=== PATIENT | male | born 1935 | race Caucasian/White ===

== ENCOUNTER 2017-09-14 14:42 | Emergency (ER) | payer MEDICARE, OTHER ==
[~2017-09-14] VITALS: Ht 175.3 cm; Wt 77.0 kg
[2017-09-14 14:44] VITALS: BP 141/77; PULSE 65; RESP 16; TEMP 97.5; O2SAT 96
[2017-09-14 15:55] LABS: AUTOMATED NEUTROPHIL # 5.8 TH/MM3 (1.8-7.7); BASOPHIL % 0.2 % (0.0-2.0); EOSINOPHIL % 0.4 % (0.0-4.0); HEMATOCRIT 46.5 % (39.0-51.0); HEMOGLOBIN 16.2 GM/DL (13.0-17.0); LYMPH % 23.8 % (9.0-44.0); MEAN CELL VOLUME 89.4 FL (80.0-100.0); MEAN CORPUSCULAR HEMOGLOBIN 31.2 PG (27.0-34.0); MEAN CORPUSCULAR HGB CONC 34.9 % (32.0-36.0); MEAN PLATELET VOLUME 7.4 FL (7.0-11.0); MONO % 6.9 % (0.0-8.0); MONOCYTE # 0.6 TH/MM3 (0-0.9); NEUT % 68.7 % (16.0-70.0); PLATELET COUNT 251 TH/MM3 (150-450); RED BLOOD COUNT 5.21 MIL/MM3 (4.50-5.90); RED CELL DISTRIBUTION WIDTH 12.7 % (11.6-17.2); WHITE BLOOD COUNT 8.4 TH/MM3 (4.0-11.0)
--- NOTE | 2017-09-14 15:56 | PD ---
HPI Chief Complaint: Abdominal Pain Time Seen by Provider: 15:51 Travel History International Travel<30 days: No Contact w/Intl Traveler<30days: No Traveled to known affect area: No History of Present Illness HPI 81-year-old male presents the emergency department with ongoing and worsening abdominal pain over the past 5 days. Patient states the pain was more intermittent, and felt like a previous gastric ulcer he had. Patient has been trying [id number] antacids, Carafate, and other medications without improvement. Patient has had nausea but no vomiting or diarrhea. He denies fever or chills. Patient states the pain sometimes radiates up into his chest but is mainly in the anterior central abdomen. Patient has had his gallbladder removed in the past. He still has his appendix. He denies urinary symptoms. Patient denies being a heavy drinker. He denies flank pain. Patient's pain is currently 9 out of 10. He has visible guarding. He has no known drug allergies. [facility] Social History Alcohol Use: Yes Tobacco Use: No Substance Use: No Allergies-Medications (Allergen,Severity, Reaction): Coded Allergies: No Known Allergies (Unverified , 09/14/17) Reported Meds & Prescriptions Reported Meds & Active Scripts Active Tramadol (Tramadol HCl) 50 Mg Tab 50 Mg PO Q6H PRN Carafate (Sucralfate) 1 Gram Tab 1 Gm PO QID On empty stomach Pantoprazole (Pantoprazole Sodium) 40 Mg Tab 40 Mg PO BID Reported Fiber (Calcium Polycarbophil) 625 Mg Tab 625 Mg PO PRN Melatonin 5 Mg Tab 5 Mg PO HS Lorazepam 1 Mg Tab 1 Mg PO Q4H PRN Lexapro (Escitalopram Oxalate) 10 Mg Tab 10 Mg PO DAILY Review of Systems Except as stated in HPI: all other systems reviewed are Neg General / Constitutional: No: Fever, Chills Eyes: No: Visual changes HENT: No: Headaches Cardiovascular: No: Chest Pain or Discomfort Respiratory: No: Shortness of Breath Gastrointestinal: Positive: Nausea, Abdominal Pain, Loss of Appetite, No: Vomiting, Diarrhea, Hematemesis, Hematochezia, Constipation, Changes in Bowel Habits, Indigestion (See history of present illness), Dysphagia Genitourinary: No: Urgency, Frequency, Dysuria Musculoskeletal: No: Pain Skin: No Rash Neurologic: No: Weakness Psychiatric: No: Depression Endocrine: No: Polydipsia Hematologic/Lymphatic: No: Easy Bruising Physical Exam Narrative GENERAL: Patient appears in moderate distress SKIN: Warm and dry. Normal color. Normal turgor. No rash. HEAD: Atraumatic. Normocephalic. EYES: Pupils equal and round. No scleral icterus. No injection or drainage. ENT: No nasal bleeding or discharge. Mucous membranes pink and moist. Pharynx is clear. Airways patent NECK: Trachea midline. Supple and nontender CARDIOVASCULAR: Regular rate and rhythm. RESPIRATORY: No accessory muscle use. Clear to auscultation. Breath sounds equal bilaterally. GASTROINTESTINAL: Patient has mild to moderate guarding. Patient has nonspecific tenderness in the central to right lower quadrant, nondistended. No specific point tenderness or rebound is appreciated. Psoas sign does not appear to be positive. Hepatic and splenic margins not palpable. MUSCULOSKELETAL: Extremities without clubbing, cyanosis, or edema. No obvious deformities. NEUROLOGICAL: Awake and alert. No obvious cranial nerve deficits. Motor grossly within normal limits. Five out of 5 muscle strength in the arms and legs. Normal speech. PSYCHIATRIC: Appropriate mood and affect; insight and judgment normal. Data Data Last Documented VS Vital Signs Date Time Temp Pulse Resp B/P (MAP) Pulse Ox O2 Delivery O2 Flow Rate FiO2 09/14/17 16:55 18 98 Nasal Cannula 2.00 09/14/17 14:44 97.5 65 Orders Orders Complete Blood Count With Diff (09/14/17 15:26) Comprehensive Metabolic Panel (09/14/17 15:26) Urinalysis - C+S If Indicated (09/14/17 15:26) Lipase (09/14/17 15:26) Ct Abd/Pel W Iv Contrast(Rout) (09/14/17 15:57) Iv Access Insert/Monitor (09/14/17 15:57) Ecg Monitoring (09/14/17 15:57) Oximetry (09/14/17 15:57) NPO (09/14/17 15:57) Morphine Inj (Morphine Inj) (09/14/17 16:00) Ondansetron Inj (Zofran Inj) (09/14/17 16:00) Sodium Chlor 0.9% 1000 Ml Inj (Ns 1000 M (09/14/17 15:57) Sodium Chloride 0.9% Flush (Ns Flush) (09/14/17 16:00) Electrocardiogram (09/14/17 15:57) Famotidine Inj (Pepcid Inj) (09/14/17 16:00) Ckmb (Isoenzyme) Profile (09/14/17 16:00) Troponin I (09/14/17 16:00) Iohexol 350 Inj (Omnipaque 350 Inj) (09/14/17 17:22) Al-Mag Hy-Si 40-40-4 Mg/Ml Liq (Mag-Al P (09/14/17 17:30) Lidocaine 2% Viscous (Xylocaine 2% Visco (09/14/17 17:30) Pantoprazole (Protonix) (09/14/17 17:30) Lorazepam Inj (Ativan Inj) (09/14/17 17:45) Ed Discharge Order (09/14/17 18:15) Labs Laboratory Tests Test 09/14/17 15:30 White Blood Count 8.4 TH/MM3 Red Blood Count 5.21 MIL/MM3 Hemoglobin 16.2 GM/DL Hematocrit 46.5 % Mean Corpuscular Volume 89.4 FL Mean Corpuscular Hemoglobin 31.2 PG Mean Corpuscular Hemoglobin Concent 34.9 % Red Cell Distribution Width 12.7 % Platelet Count 251 TH/MM3 Mean Platelet Volume 7.4 FL Neutrophils (%) (Auto) 68.7 % Lymphocytes (%) (Auto) 23.8 % Monocytes (%) (Auto) 6.9 % Eosinophils (%) (Auto) 0.4 % Basophils (%) (Auto) 0.2 % Neutrophils # (Auto) 5.8 TH/MM3 Lymphocytes # (Auto) 2.0 TH/MM3 Monocytes # (Auto) 0.6 TH/MM3 Eosinophils # (Auto) 0.0 TH/MM3 Basophils # (Auto) 0.0 TH/MM3 CBC Comment DIFF FINAL Differential Comment Urine Color YELLOW Urine Turbidity CLEAR Urine pH 6.5 Urine Specific Central 1.026 Urine Protein TRACE mg/dL Urine Glucose (UA) NEG mg/dL Urine Ketones 10 mg/dL Urine Occult Blood NEG Urine Nitrite NEG Urine Bilirubin NEG Urine Urobilinogen LESS THAN 2.0 MG/DL Urine Leukocyte Esterase TRACE Urine WBC 2 /hpf Urine Mucus FEW /lpf Microscopic Urinalysis Comment CULT NOT INDICATED Blood Urea Nitrogen 21 MG/DL Creatinine 0.92 MG/DL Random Glucose 107 MG/DL Total Protein 7.4 GM/DL Albumin 4.5 GM/DL Calcium Level 9.2 MG/DL Alkaline Phosphatase 61 U/L Aspartate Amino Transf (AST/SGOT) 17 U/L Alanine Aminotransferase (ALT/SGPT) 26 U/L Total Bilirubin 1.8 MG/DL Sodium Level 136 MEQ/L Potassium Level 3.9 MEQ/L Chloride Level 105 MEQ/L Carbon Dioxide Level 23.8 MEQ/L Anion Gap 7 MEQ/L Estimat Glomerular Filtration Rate 79 ML/MIN Lipase 88 U/L [facility] Medical Decision Making Medical Screen Exam Complete: Yes Emergency Medical Condition: Yes Medical Record Reviewed: Yes Differential Diagnosis Abdominal pain. Pancreatitis. Diverticulitis. Appendicitis. Cardiac syndrome. Kidney stone. Renal colic. Biliary colic. Gastric ulcer. Narrative Course Patient is medically stable at time of exam. Labs ordered including CBC, CMP, urinalysis, lipase, and cardiac panel. Patient is given 2 mg morphine IV as well as 4 mg Zofran IV. Patient is given 20 mg famotidine IV as well as 1000 mL of normal saline bolus. CT of the abdomen is ordered with IV contrast. EKG is ordered as well. EKG shows sinus rhythm with occasional ectopic PVCs. CBC is unremarkable. Chemistries are unremarkable except for BUN of 21, GFR 79, glucose 107, total bilirubin was 1.8. Urinalysis shows 10 ketones otherwise no significant findings. Abdominal/pelvis CT shows: CONCLUSION: Negative for an acute process. I do not see etiology for the abdominal pain. Patient is given 40 mg pantoprazole p.o., as well as GI cocktail p.o. Patient is given Lorazepam 1 mg IV. Patient is felt to have gastritis. Patient will be treated empirically with pantoprazole 40 mg twice daily 2 weeks. Patient is to start Carafate 1 g 4 times daily as directed. Patient is given tramadol 50 mg every 6 hours as needed pain #20 Recommend close follow-up with his primary care physician or return to emergency department with worsening symptoms as needed. Diagnosis Primary Impression: Abdominal pain Qualified Codes: R10.13 - Epigastric pain Referrals: Physician Surgeon Primary Care Physician Patient Instructions: Diet for Stomach Ulcers and Gastritis (ED), General Instructions Additional Instructions: EKG shows sinus rhythm with occasional ectopic PVCs. CBC is unremarkable. Chemistries are unremarkable except for BUN of 21, GFR 79, glucose 107, total bilirubin was 1.8. Urinalysis shows 10 ketones otherwise no significant findings. Abdominal/pelvis CT shows: CONCLUSION: Negative for an acute process. I do not see etiology for the abdominal pain. Patient is given 40 mg pantoprazole p.o., as well as GI cocktail p.o. Patient is felt to have gastritis. Patient will be treated empirically with pantoprazole 40 mg twice daily 2 weeks. Patient is to start Carafate 1 g 4 times daily as directed. Patient is given tramadol 50 mg every 6 hours as needed pain #20 Recommend close follow-up with his primary care physician or return to emergency department with worsening symptoms as needed. Med/Other Pt SpecificInfo: Prescription(s) given Scripts Tramadol (Tramadol) 50 Mg Tab 50 MG PO Q6H Y for PAIN, #20 TAB 0 Refills Prov: Roger Hannah MD 09/14/17 Sucralfate (Carafate) 1 Gram Tab 1 GM PO QID for Ulcer Prevention, #120 TAB 0 Refills On empty stomach Prov: Roger Hannah MD 09/14/17 Pantoprazole (Pantoprazole) 40 Mg Tab 40 MG PO BID for Reflux, #30 TAB 0 Refills Prov: Roger Hannah MD 09/14/17 Disposition: 01 DISCHARGE HOME Condition: Stable Italo Hinojosa Sep 14, 2017 15:56
[2017-09-14] MEDS ORDERED: SODIUM CHLOR 0.9% 1000 ML INJ 1,000 ML IV SCH (15:57)
[2017-09-14] MEDS ORDERED: ONDANSETRON HCL 4 MG/2 ML VIAL IVP ONE (16:00)
[2017-09-14] MEDS ORDERED: FAMOTIDINE 20 MG/2 ML VIAL IV PUSH ONE (16:00)
[2017-09-14] MEDS ORDERED: MORPHINE SULFATE 4 MG/ML INJ IV PUSH ONE (16:00)
[2017-09-14] MEDS ORDERED: SODIUM CHLORIDE 0.9% FLUSH 10 ML FLUSH IV FLUSH PRN (16:00)
[2017-09-14 16:06] LABS: BILIRUBIN, URINE NEG (NEG); BLOOD, URINE NEG (NEG); GLUCOSE,URINE NEG (NEG); KETONE, URINE 10 mg/dL (NEG); MUCUS URINE FEW /lpf (OCC); NITRITE,URINE NEG (NEG); PH, URINE 6.5 (5.0-8.5); URINE COLOR YELLOW (YELLW/STRAW); URINE LEUKOCYTE ESTERASE TRACE (NEG)
[2017-09-14 16:08] LABS: ALBUMIN 4.5 GM/DL (3.4-5.0); ALT (GPT) 26 U/L (12-78); AST (GOT) 17 U/L (15-37); BICARBONATE 23.8 MEQ/L (21.0-32.0); BLOOD UREA NITROGEN 21 MG/DL (7-18); CALCIUM 9.2 MG/DL (8.5-10.1); CHLORIDE 105 MEQ/L (98-107); CREATININE 0.92 MG/DL (0.60-1.30); GLOMERULAR FILTRATION RATE 79 ML/MIN (>89); GLUCOSE,RANDOM 107 MG/DL (74-106); SODIUM (NA) 136 MEQ/L (136-145)
[2017-09-14 16:10] LABS: ALKALINE PHOSPHATASE 61 U/L (45-117); TOTAL BILIRUBIN ADULT 1.8 MG/DL (0.2-1.0); TOTAL PROTEIN 7.4 GM/DL (6.4-8.2)
[2017-09-14 16:55] VITALS: RESP 18; O2SAT 98
[2017-09-14] MEDS ORDERED: MELA5 PO (17:00)
[2017-09-14] MEDS ORDERED: LEXA10TA PO (17:00)
[2017-09-14] MEDS ORDERED: FIBE625T10 PO (17:00)
[2017-09-14] MEDS ORDERED: LORA1TAB12 PO (17:00)
[2017-09-14] MEDS ORDERED: IOHEXOL 350 MG/ML 10 ML VIAL (for RAD DIAG) IVCONTRAST ONE (17:22)
--- NOTE | 2017-09-14 17:26 | RADRPT ---
EXAM DATE/TIME: 09/14/2017 17:14 [place] COMPARISON: No previous studies available for comparison. INDICATIONS : Abdominal pain. IV CONTRAST: 100 cc Omnipaque 350 (iohexol) IV ORAL CONTRAST: No oral contrast ingested. RADIATION DOSE: 23.23 CTDIvol (mGy) MEDICAL HISTORY : None SURGICAL HISTORY : None. ENCOUNTER: Initial ACUITY: 4 - 6 days PAIN SCALE: 7/10 LOCATION: middle lower abdomen TECHNIQUE: Volumetric scanning of the abdomen and pelvis was performed. Using automated exposure control and ad justment of the mA and/or kV according to patient size, radiation dose was kept as low as reasonably achievable to obtain optimal diagnostic quality images. DICOM format image data is available electro nically for review and comparison. FINDINGS: LOWER LUNGS: The visualized lower lungs are clear. LIVER: Homogeneous density without lesion. There is no dilation of the biliary tree. No calcified gallston es. SPLEEN: Normal size without lesion. PANCREAS: Within normal limits. KIDNEYS: Normal in size and shape. There is no mass, stone or hydronephrosis. ADRENAL GLANDS: Within normal limits. VASCULAR: There is no aortic aneurysm. BOWEL/MESENTERY: The stomach, small bowel, and colon demonstrate no acute abnormality. There is no free intraperitone al air or fluid. ABDOMINAL WALL: Within normal limits. RETROPERITONEUM: There is no lymphadenopathy. BLADDER: No wall thickening or mass. REPRODUCTIVE: Within normal limits. INGUINAL: There is no lymphadenopathy or hernia. MUSCULOSKELETAL: Within normal limits for patient age. CONCLUSION: Negative for an acute process. I do not see etiology for the abdominal pain. Jerome Stacy MD FACR on September 14, 2017 at 17:22 Board Certified Radiologist. This report was verified electronically.
[2017-09-14] MEDS ORDERED: LIDOCAINE VISCOUS 2% SOLN 15 ML UDC PO ONE (17:30)
[2017-09-14] MEDS ORDERED: PANTOPRAZOLE SOD 40 MG DELAYED RELEASE TAB PO ONE (17:30)
[2017-09-14] MEDS ORDERED: ALUMINUM/MAGNESIUM/SIMETH 30 ML CUP PO ONE (17:30)
[2017-09-14] MEDS ORDERED: TRAM50TA PO (17:35)
[2017-09-14] MEDS ORDERED: PANT40TA3 PO (17:35)
[2017-09-14] MEDS ORDERED: CARA1TAB6 PO (17:35)
[2017-09-14] MEDS ORDERED: LORazepam 2 MG/ML VIAL IV PUSH ONE (17:45)
[2017-09-15 00:15] LABS: TROPONIN I LESS THAN 0.02 NG/ML (0.02-0.05)
--- NOTE | 2017-09-15 23:57 | EKG ---
Date Performed: 09/14/2017 Time Performed: 16:48:29 PTAGE: 81 years EKG: Sinus rhythm WITH OCCASIONAL ECTOPIC PREMATURE COMPLEXES BORDERLINE ECG NO PREVIOUS TRACING DOCTOR: Billy Alarcon Interpretating Date/Time 09/15/2017 23:56:51
== END 2017-09-14 19:03 | disposition home or self-care (01) ==
LOC: NEPC 14:42
DX: R10.13 Epigastric pain (principal); I49.3 Ventricular premature depolarization; R11.0 Nausea; Z79.899 Other long term (current) drug therapy
CPT/HCPCS: 74177; 80053; 81001; 82550; 83690; 84484; 85025; 93005; 96374; 96375; 99285; J2060; J2270; J2405; J7030; Q9967

== ENCOUNTER 2017-09-19 15:49 | Observation (INO) | payer MEDICARE, OTHER ==
[~2017-09-19] VITALS: Ht 175.3 cm; Wt 80.0 kg
[~2017-09-19 15:49] MED LIST: CARA1TAB6 PO; FIBE625T10 PO; LEXA10TA PO; LORA1TAB12 PO; MELA5 PO; PANT40TA3 PO; TRAM50TA PO
[2017-09-19] MEDS ORDERED: IOHEXOL 350 MG/ML 10 ML VIAL (for RAD DIAG) IVCONTRAST ONE (15:50)
[2017-09-19 15:51] VITALS: BP 144/79; PULSE 69; RESP 20; TEMP 97.6; O2SAT 96
[2017-09-19] MEDS ORDERED: MORPHINE SULFATE 2 MG/ML INJ IV PUSH ONE (16:30)
[2017-09-19] MEDS ORDERED: ONDANSETRON HCL 4 MG/2 ML VIAL IV PUSH ONE (16:30)
[2017-09-19] MEDS ORDERED: SODIUM CHLOR 0.9% 1000 ML INJ 1,000 ML IV ONE (16:30)
[2017-09-19] MEDS: SODIUM CHLORIDE 0.9% FLUSH 10 ML FLUSH IV FLUSH PRN ×2 (16:54→20:05)
[2017-09-19 17:03] VITALS: O2SAT 97
[2017-09-19 17:11] VITALS: BP 127/63; PULSE 55; RESP 18; O2SAT 98
--- NOTE | 2017-09-19 17:11 | PD ---
HPI Chief Complaint: Abdominal Pain Time Seen by Provider: 16:01 Travel History International Travel<30 days: No Contact w/Intl Traveler<30days: No Traveled to known affect area: No History of Present Illness HPI 81-year-old male presents to the ED for evaluation of "all over" abdominal pain. Pain is constant, aching/burning, rated 10/10, no alleviating or exacerbating factors reported. Sudden onset approximately 10 days ago. He endorses loss of appetite secondary to fear of pain. He endorses nausea but denies vomiting, fever, chills, melena, hematochezia, diarrhea, changes in bowel habits. He was seen in the ED 09/14/[address] scan that was unremarkable. He was provided a GI cocktail, Carafate and pantoprazole. States the GI cocktail did improve his symptoms but his at-home medications have not been helping. Today he saw Dr. Bettencourt who recommended the patient come to the emergency room for CTA and admission. PFSH Past Medical History Anxiety: Yes Depression: Yes Diminished Hearing: No Ulcer: Yes Past Surgical History Cholecystectomy: Yes Other Surgery: Yes (HERNIA REPAIR X 2) Social History Alcohol Use: Yes (OCCASSIONAL) Tobacco Use: No Substance Use: No Allergies-Medications (Allergen,Severity, Reaction): Coded Allergies: No Known Allergies (Unverified , 09/19/17) Reported Meds & Prescriptions Reported Meds & Active Scripts Active Tramadol (Tramadol HCl) 50 Mg Tab 50 Mg PO Q6H PRN Carafate (Sucralfate) 1 Gram Tab 1 Gm PO QID On empty stomach Pantoprazole (Pantoprazole Sodium) 40 Mg Tab 40 Mg PO BID Reported Fiber (Calcium Polycarbophil) 625 Mg Tab 625 Mg PO PRN Melatonin 5 Mg Tab 5 Mg PO HS Lorazepam 1 Mg Tab 1 Mg PO Q4H PRN Lexapro (Escitalopram Oxalate) 10 Mg Tab 10 Mg PO DAILY Review of Systems Except as stated in HPI: all other systems reviewed are Neg Physical Exam Narrative GENERAL: Well-nourished, well-developed nontoxic appearing white male in no acute distress. SKIN: Focused skin assessment warm/dry. HEAD: Normocephalic. EYES: No scleral icterus. No injection or drainage. NECK: Supple, trachea midline. No JVD or lymphadenopathy. CARDIOVASCULAR: Regular rate and rhythm without murmurs, gallops, or rubs. RESPIRATORY: Breath sounds clear and equal bilaterally. No accessory muscle use. GASTROINTESTINAL: Abdomen soft, nondistended, diffusely TTP. Hypoactive bowel sounds. MUSCULOSKELETAL: No cyanosis, or edema. BACK: Nontender without obvious deformity. No CVA tenderness. Data Data Last Documented VS Vital Signs Date Time Temp Pulse Resp B/P (MAP) Pulse Ox O2 Delivery O2 Flow Rate FiO2 09/19/17 18:37 62 18 155/72 (99) 99 Nasal Cannula 2.00 09/19/17 15:51 97.6 Orders Orders Complete Blood Count With Diff (09/19/17 16:03) Comprehensive Metabolic Panel (09/19/17 16:03) Lipase (09/19/17 16:03) Iv Access Insert/Monitor (09/19/17 16:03) Ecg Monitoring (09/19/17 16:03) Oximetry (09/19/17 16:03) Sodium Chloride 0.9% Flush (Ns Flush) (09/19/17 16:15) Cta Abd/Pel W Iv Contrast W 3d (09/19/17 ) Lactic Acid (09/19/17 16:29) Ondansetron Inj (Zofran Inj) (09/19/17 16:30) Morphine Inj (Morphine Inj) (09/19/17 16:30) Sodium Chlor 0.9% 1000 Ml Inj (Ns 1000 M (09/19/17 16:30) Iohexol 350 Inj (Omnipaque 350 Inj) (09/19/17 15:50) Acetamin-Hydrocod 325-7.5 Mg ([place] 7.5 (09/19/17 18:30) Lactic Acid (09/19/17 18:41) Al-Mag Hy-Si 40-40-4 Mg/Ml Liq (Mag-Al P (09/19/17 19:00) Lidocaine 2% Viscous (Xylocaine 2% Visco (09/19/17 19:00) Consult Psychiatry (09/19/17 ) Consult Gastroenterology (09/19/17 ) Lorazepam Inj (Ativan Inj) (09/19/17 19:45) Place In Observation (09/19/17 ) Vital Signs (Adult) Q4H (09/19/17 20:18) Activity Oob With Assistance (09/19/17 20:18) Farm Laborer / Telemetry .CONTINUOUS (09/19/17 20:18) Diet Npo (09/20/17 Breakfast) Sodium Chloride 0.9% Flush (Ns Flush) (09/19/17 20:30) Sodium Chloride 0.9% Flush (Ns Flush) (09/19/17 21:00) Ondansetron Inj (Zofran Inj) (09/19/17 20:30) Pt Request For Service (09/19/17 20:18) Case Management Consult (09/19/17 20:18) Naloxone Inj (Narcan Inj) (09/19/17 20:30) Admit Order (Ed Use Only) (09/19/17 20:18) Labs Laboratory Tests Test 09/19/17 16:50 09/19/17 19:05 White Blood Count 9.2 TH/MM3 Red Blood Count 5.00 MIL/MM3 Hemoglobin 15.8 GM/DL Hematocrit 45.1 % Mean Corpuscular Volume 90.1 FL Mean Corpuscular Hemoglobin 31.6 PG Mean Corpuscular Hemoglobin Concent 35.1 % Red Cell Distribution Width 12.7 % Platelet Count 216 TH/MM3 Mean Platelet Volume 7.4 FL Neutrophils (%) (Auto) 70.0 % Lymphocytes (%) (Auto) 21.6 % Monocytes (%) (Auto) 7.7 % Eosinophils (%) (Auto) 0.6 % Basophils (%) (Auto) 0.1 % Neutrophils # (Auto) 6.4 TH/MM3 Lymphocytes # (Auto) 2.0 TH/MM3 Monocytes # (Auto) 0.7 TH/MM3 Eosinophils # (Auto) 0.1 TH/MM3 Basophils # (Auto) 0.0 TH/MM3 CBC Comment DIFF FINAL Differential Comment Blood Urea Nitrogen 14 MG/DL Creatinine 1.09 MG/DL Random Glucose 96 MG/DL Total Protein 7.4 GM/DL Albumin 4.3 GM/DL Calcium Level 9.5 MG/DL Alkaline Phosphatase 63 U/L Aspartate Amino Transf (AST/SGOT) 24 U/L Alanine Aminotransferase (ALT/SGPT) 28 U/L Total Bilirubin 2.0 MG/DL Sodium Level 136 MEQ/L Potassium Level 4.0 MEQ/L Chloride Level 103 MEQ/L Carbon Dioxide Level 24.7 MEQ/L Anion Gap 8 MEQ/L Estimat Glomerular Filtration Rate 65 ML/MIN Lactic Acid Level 2.4 mmol/L 0.8 mmol/L Lipase 98 U/L MDM Medical Decision Making Medical Screen Exam Complete: Yes Emergency Medical Condition: Yes Differential Diagnosis Gastritis versus mesenteric ischemia versus PUD versus GERD versus other Narrative Course 81-year-old male presents to the ED for evaluation of "all over" abdominal pain. Pain is constant, aching/burning, rated 10/10, sudden onset approximately 10 days ago. He endorses loss of appetite secondary to fear of pain. He endorses nausea. Denies vomiting, fever, chills, melena, hematochezia , diarrhea, changes in bowel habits. He was seen in the ED 09/14/[address] scan that was unremarkable. Today he saw Dr. Bettencourt who recommended the patient come to the emergency room for CTA and admission. Patient afebrile on presentation. Physical exam reveals a nontoxic-appearing white male in no acute distress. There is no focal tenderness in the abdomen but he is mildly diffusely tender. No distention, no guarding. IV was established. Patient was administered 4 mg morphine, 4 mg Zofran, 1 L normal saline. CBC, CMP are unremarkable. Lipase 98. Lactic acid 2.4. CTA abdomen and pelvis: Tiny pericardial effusion and hepatic cysts otherwise unremarkable. On recheck the patient is complaining of continued pain. The nurse is concerned for decreased respiratory drive. Patient was administered GI cocktail and 7.5 mg [place]amo by mouth. I discussed the results of the workup with the patient and his . They are agreeable to admission pending Dr. Bettencourt' consult. I spoke with Dr. Camarena who is familiar with this patient. We discussed the patient's negative workup as well as his impression. Apparently there is some potential for psychiatric origin of this patient's pain. However , Dr. Camarena is willing to consult on the patient in the morning. I discussed this with the patient's family members at bedside. The patient's daughter-in- law is managing his care. She endorses several stressors including illness of the patient's . He does see a psychiatrist and recently had his medications adjusted. She states that he does seem in less pain when he takes the Ativan that is prescribed. Upon discussing discharge with the patient he became very anxious, began pacing around the room, complaining of worsening pain. I do suspect that there is a psychiatric component to this. Patient was administered 1 mg Ativan IV. We'll admit for observation with consult to gastroenterology and psychiatry. I spoke with Dr. Jean who agrees to accept the patient for observation. Please see medicine, psych and GI notes for disposition. Radha Guerrero Sep 19, 2017 17:11
[2017-09-19 17:16] LABS: AUTOMATED NEUTROPHIL # 6.4 TH/MM3 (1.8-7.7); BASOPHIL % 0.1 % (0.0-2.0); EOSINOPHIL # 0.1 TH/MM3 (0-0.4); EOSINOPHIL % 0.6 % (0.0-4.0); HEMATOCRIT 45.1 % (39.0-51.0); HEMOGLOBIN 15.8 GM/DL (13.0-17.0); LYMPH % 21.6 % (9.0-44.0); MEAN CELL VOLUME 90.1 FL (80.0-100.0); MEAN CORPUSCULAR HEMOGLOBIN 31.6 PG (27.0-34.0); MEAN CORPUSCULAR HGB CONC 35.1 % (32.0-36.0); MEAN PLATELET VOLUME 7.4 FL (7.0-11.0); MONO % 7.7 % (0.0-8.0); MONOCYTE # 0.7 TH/MM3 (0-0.9); PLATELET COUNT 216 TH/MM3 (150-450); RED CELL DISTRIBUTION WIDTH 12.7 % (11.6-17.2); WHITE BLOOD COUNT 9.2 TH/MM3 (4.0-11.0)
[2017-09-19 17:38] LABS: ALBUMIN 4.3 GM/DL (3.4-5.0); ALT (GPT) 28 U/L (12-78); AST (GOT) 24 U/L (15-37); BICARBONATE 24.7 MEQ/L (21.0-32.0); BLOOD UREA NITROGEN 14 MG/DL (7-18); CALCIUM 9.5 MG/DL (8.5-10.1); CHLORIDE 103 MEQ/L (98-107); CREATININE 1.09 MG/DL (0.60-1.30); GLOMERULAR FILTRATION RATE 65 ML/MIN (>89); GLUCOSE,RANDOM 96 MG/DL (74-106); SODIUM (NA) 136 MEQ/L (136-145)
[2017-09-19 17:40] LABS: ALKALINE PHOSPHATASE 63 U/L (45-117); TOTAL PROTEIN 7.4 GM/DL (6.4-8.2)
[2017-09-19] MEDS ORDERED: ACETAMINOPHEN/HYDROcodone 325 MG/7.5 MG TAB PO ONE (18:30)
[2017-09-19 18:37] VITALS: BP 155/72; PULSE 62; RESP 18; O2SAT 99
--- NOTE | 2017-09-19 18:59 | PD ---
Physical Exam Date Seen by Provider: Sep 19, 2017 Time Seen by Provider: 18:00 Narrative I, Dr. Hernandez, have reviewed the advance practice practitioner's documentation and am in agreement, met with the patient face to face, made the diagnosis, and the medical decision making was done by me. *My assessment and Findings: Patient seen and evaluated with PA, please see PA note for further details. 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 On evaluation, he has diffuse abdominal tenderness. There is no signs of distention, no guarding or rebound. Laboratory Tests Test 09/19/17 16:50 Total Bilirubin 2.0 MG/DL (0.2-1.0) Estimat Glomerular Filtration Rate 65 ML/MIN (>89) Lactic Acid Level 2.4 mmol/L (0.4-2.0) Patient was given pain medication the nausea medication, CTA order for the patient, planning to admit patient for further treatment. Data Data Last Documented VS Vital Signs Date Time Temp Pulse Resp B/P (MAP) Pulse Ox O2 Delivery O2 Flow Rate FiO2 09/19/17 18:37 62 18 155/72 (99) 99 Nasal Cannula 2.00 09/19/17 15:51 97.6 Orders Orders Complete Blood Count With Diff (09/19/17 16:03) Comprehensive Metabolic Panel (09/19/17 16:03) Lipase (09/19/17 16:03) Iv Access Insert/Monitor (09/19/17 16:03) Ecg Monitoring (09/19/17 16:03) Oximetry (09/19/17 16:03) Sodium Chloride 0.9% Flush (Ns Flush) (09/19/17 16:15) Cta Abd/Pel W Iv Contrast W 3d (09/19/17 ) Lactic Acid (09/19/17 16:29) Ondansetron Inj (Zofran Inj) (09/19/17 16:30) Morphine Inj (Morphine Inj) (09/19/17 16:30) Sodium Chlor 0.9% 1000 Ml Inj (Ns 1000 M (09/19/17 16:30) Iohexol 350 Inj (Omnipaque 350 Inj) (09/19/17 15:50) Acetamin-Hydrocod 325-7.5 Mg ([place] 7.5 (09/19/17 18:30) Lactic Acid (09/19/17 18:41) Al-Mag Hy-Si 40-40-4 Mg/Ml Liq (Mag-Al P (09/19/17 19:00) Lidocaine 2% Viscous (Xylocaine 2% Visco (09/19/17 19:00) Labs Laboratory Tests Test 09/19/17 16:50 White Blood Count 9.2 TH/MM3 Red Blood Count 5.00 MIL/MM3 Hemoglobin 15.8 GM/DL Hematocrit 45.1 % Mean Corpuscular Volume 90.1 FL Mean Corpuscular Hemoglobin 31.6 PG Mean Corpuscular Hemoglobin Concent 35.1 % Red Cell Distribution Width 12.7 % Platelet Count 216 TH/MM3 Mean Platelet Volume 7.4 FL Neutrophils (%) (Auto) 70.0 % Lymphocytes (%) (Auto) 21.6 % Monocytes (%) (Auto) 7.7 % Eosinophils (%) (Auto) 0.6 % Basophils (%) (Auto) 0.1 % Neutrophils # (Auto) 6.4 TH/MM3 Lymphocytes # (Auto) 2.0 TH/MM3 Monocytes # (Auto) 0.7 TH/MM3 Eosinophils # (Auto) 0.1 TH/MM3 Basophils # (Auto) 0.0 TH/MM3 CBC Comment DIFF FINAL Differential Comment Blood Urea Nitrogen 14 MG/DL Creatinine 1.09 MG/DL Random Glucose 96 MG/DL Total Protein 7.4 GM/DL Albumin 4.3 GM/DL Calcium Level 9.5 MG/DL Alkaline Phosphatase 63 U/L Aspartate Amino Transf (AST/SGOT) 24 U/L Alanine Aminotransferase (ALT/SGPT) 28 U/L Total Bilirubin 2.0 MG/DL Sodium Level 136 MEQ/L Potassium Level 4.0 MEQ/L Chloride Level 103 MEQ/L Carbon Dioxide Level 24.7 MEQ/L Anion Gap 8 MEQ/L Estimat Glomerular Filtration Rate 65 ML/MIN Lactic Acid Level 2.4 mmol/L Lipase 98 U/L [facility] Medical Record Reviewed: Yes Supervised Visit with LINO: Yes Diagnosis Primary Impression: Abdominal pain Admitting Information Admitting Physician Requests: Admit Stacey Hernandez MD Sep 19, 2017 18:59
[2017-09-19] MEDS ORDERED: ALUMINUM/MAGNESIUM/SIMETH 30 ML CUP PO ONE (19:00)
[2017-09-19] MEDS ORDERED: LIDOCAINE VISCOUS 2% SOLN 15 ML UDC PO ONE (19:00)
--- NOTE | 2017-09-19 19:01 | RADRPT ---
EXAM DATE/TIME: 09/19/2017 17:57 [place] COMPARISON: CT ABDOMEN & PELVIS W CONTRAST, September 14, 2017, 17:14. INDICATIONS : Continued abdominal pain. Evaluate for thrombosis. IV CONTRAST: 99 cc Omnipaque 350 (iohexol) IV ORAL CONTRAST: No oral contrast ingested. RADIATION DOSE: 15.68 CTDIvol (mGy) MEDICAL HISTORY : None SURGICAL HISTORY : Cholecystectomy. Hernia repair ENCOUNTER: Initial ACUITY: 2 weeks PAIN SCALE: 5/10 LOCATION: Bilateral abdomen TECHNIQUE: Volumetric scanning was performed using a multi-row detector CT scanner. The data was post processed with a variety of visualization algorithms including full volume maximum intensity projection, multi -planar sliding thin slab reformation, curved planar reformation, and surface rendering techniques. Using automated exposure control and adjustment of the mA and/or kV according to patient size, radiat ion dose was kept as low as reasonably achievable to obtain optimal diagnostic quality images. DICOM format image data is available electronically for review and comparison. FINDINGS: Again noted are simple cysts in the liver. There is a tiny pericardial effusion. There is eviden ce for prior cholecystectomy. The prostate gland measures 5.0 x 5.4 cm in AP and transverse diameters . There is mild ascites is involving the aorta and visceral arteries without any significant stenosis dissection or aneurysm. The appearance has not changed since the study from 5 days ago. The celiac, SMA, bilateral renal arteries appear patent. CONCLUSION: Tiny pericardial effusion and hepatic cysts, otherwise unremarkable. Leda Monroy MD on September 19, 2017 at 18:53 Board Certified Radiologist. This report was verified electronically.
[2017-09-19] MEDS ORDERED: LORazepam 2 MG/ML VIAL IV PUSH ONE (19:45)
[2017-09-19] MEDS ORDERED: SODIUM CHLORIDE 0.9% FLUSH 10 ML FLUSH IV FLUSH PRN (20:30)
[2017-09-19] MEDS ORDERED: NALOXONE HCL 0.4 MG/ML AMP IV PUSH PRN (20:30)
[2017-09-19] MEDS ORDERED: ONDANSETRON HCL 4 MG/2 ML VIAL IVP PRN (20:30)
[2017-09-19 20:52] VITALS: BP 147/67; PULSE 67; RESP 16; O2SAT 98
[2017-09-19] MEDS: SODIUM CHLORIDE 0.9% FLUSH 10 ML FLUSH IV FLUSH SCH (20:57)
[2017-09-19 21:54] VITALS: BP 127/69; PULSE 51; RESP 18; TEMP 98.1; O2SAT 95
--- NOTE | 2017-09-19 22:19 | HHI.HP ---
HPI Service [facility] Primary Care Physician Viry Tang MD Admission Diagnosis abdominal pain, anxiety Diagnoses: Chief Complaint: abdominal pain, anxiety Travel History International Travel<30 Days: No Contact w/Intl Traveler <30 Da: No Traveled to Known Affected Are: No History of Present Illness 81 y/o male with a history of gerd, anxiety and depression presented to the ED with complaints of abdominal pain for the last 12 days. Patient states his pain on arrival was a 10/10, intermittent, sharp all over with nausea, worse with palpation. He states now his pain has resolved, 0/10, since the pain medication and gi cocktail was given. He states he took mylanta and gas ex at home with no relief and was seen by his GI Dr. Bettencourt who sent him to the ED for a CT scan and admission. He states his last bowel movement was this morning and denies any change in consistency or color. He denies any chest pain, sob, dysuria, fever or chills. Per ER physician family and GI physician thinks this may be physiatric in nature. Per family patient use to abuse pain medication and they think this may be a cause for concern. Review of Systems Except as stated in HPI: all other systems reviewed are Neg Past Family Social History Past Medical History Anxiety depression Gerd Past Surgical History Cholecystectomy Hernia repair Reported Medications Reported Meds & Active Scripts Active Tramadol (Tramadol HCl) 50 Mg Tab 50 Mg PO Q6H PRN Carafate (Sucralfate) 1 Gram Tab 1 Gm PO QID On empty stomach Pantoprazole (Pantoprazole Sodium) 40 Mg Tab 40 Mg PO BID Reported Fiber (Calcium Polycarbophil) 625 Mg Tab 625 Mg PO PRN Melatonin 5 Mg Tab 5 Mg PO HS Lorazepam 1 Mg Tab 1 Mg PO Q4H PRN Lexapro (Escitalopram Oxalate) 10 Mg Tab 10 Mg PO DAILY Allergies: Coded Allergies: No Known Allergies (Unverified , 09/19/17) Active Ordered Medications Current Medications Medications (Trade) Dose Ordered Sig/Pato Route Start Time Stop Time Status Last Admin (NS Flush) 2 ml UNSCH PRN IV FLUSH 09/19/17 16:15 09/19/17 20:05 (NS Flush) 2 ml UNSCH PRN IV FLUSH 09/19/17 20:30 (NS Flush) 2 ml BID IV FLUSH 09/19/17 21:00 09/19/17 20:57 (Zofran Inj) 4 mg Q6H PRN IVP 09/19/17 20:30 (Narcan Inj) 0.4 mg UNSCH PRN IV PUSH 09/19/17 20:30 Family History Patient denies any family history. Social History Tobacco use: Denies Alcohol use: denies Illicit drug use: Denies Patient lives with his , for 57 years Physical Exam Vital Signs Vital Signs Date Time Temp Pulse Resp B/P (MAP) Pulse Ox O2 Delivery O2 Flow Rate FiO2 09/19/17 21:54 98.1 51 18 127/69 (88) 95 09/19/17 20:52 67 16 147/67 (93) 98 Nasal Cannula 2.00 09/19/17 18:37 62 18 155/72 (99) 99 Nasal Cannula 2.00 09/19/17 17:12 18 09/19/17 17:11 55 18 127/63 (84) 98 Nasal Cannula 2.00 09/19/17 17:03 97 Room Air 09/19/17 15:51 97.6 69 20 144/79 (100) 96 Physical Exam GENERAL: This is a well-nourished, well-developed patient, who is anxious. SKIN: No rashes, ecchymoses or lesions. Cool and dry. HEAD: Atraumatic. Normocephalic. EYES: Pupils equal round and reactive. Extraocular motions intact. ENT: Nose without bleeding, purulent drainage or septal hematoma. Airway patent. NECK: Trachea midline. No JVD or lymphadenopathy. CARDIOVASCULAR: Regular rate and rhythm without murmurs, gallops, or rubs. RESPIRATORY: Clear to auscultation. Breath sounds equal bilaterally. No wheezes , rales, or rhonchi. GASTROINTESTINAL: Abdomen soft, non-tender, nondistended. MUSCULOSKELETAL: Extremities without clubbing, cyanosis, or edema. No calf tenderness NEUROLOGICAL: Awake and alert. Motor and sensory grossly within normal limits. Normal speech. Laboratory Laboratory Tests Test 09/19/17 16:50 09/19/17 19:05 White Blood Count 9.2 Red Blood Count 5.00 Hemoglobin 15.8 Hematocrit 45.1 Mean Corpuscular Volume 90.1 Mean Corpuscular Hemoglobin 31.6 Mean Corpuscular Hemoglobin Concent 35.1 Red Cell Distribution Width 12.7 Platelet Count 216 Mean Platelet Volume 7.4 Neutrophils (%) (Auto) 70.0 Lymphocytes (%) (Auto) 21.6 Monocytes (%) (Auto) 7.7 Eosinophils (%) (Auto) 0.6 Basophils (%) (Auto) 0.1 Neutrophils # (Auto) 6.4 Lymphocytes # (Auto) 2.0 Monocytes # (Auto) 0.7 Eosinophils # (Auto) 0.1 Basophils # (Auto) 0.0 CBC Comment DIFF FINAL Differential Comment Blood Urea Nitrogen 14 Creatinine 1.09 Random Glucose 96 Total Protein 7.4 Albumin 4.3 Calcium Level 9.5 Alkaline Phosphatase 63 Aspartate Amino Transf (AST/SGOT) 24 Alanine Aminotransferase (ALT/SGPT) 28 Total Bilirubin 2.0 Sodium Level 136 Potassium Level 4.0 Chloride Level 103 Carbon Dioxide Level 24.7 Anion Gap 8 Estimat Glomerular Filtration Rate 65 Lactic Acid Level 2.4 0.8 Lipase 98 Result Diagram: 09/19/17 1650 09/19/17 1650 Imaging Last Impressions Abdomen/Pelvis CT 09/19/17 0000 Signed Impressions: Service Date/Time: Tuesday, September 19, 2017 17:57 - CONCLUSION: Tiny pericardial effusion and hepatic cysts, otherwise unremarkable. MD Keith Brandt VTE Risk Assessment Caprini VTE Risk Assessment: No/Low Risk (score <= 1) Caprini Risk Assessment Model Point Value = 1 Point Value = 2 Point Value = 3 Point Value = 5 Age 41-60 Minor surgery BMI > 25 kg/m2 Swollen legs Varicose veins or History of unexplained or recurrent spontaneous Oral contraceptives or hormone replacement Sepsis (< 1 month) Serious lung disease, including pneumonia (< 1 month) Abnormal pulmonary function Acute myocardial infarction Congestive heart failure (< 1 month) History of inflammatory bowel disease Medical patient at bed rest Age 61-74 Arthroscopic surgery Major open surgery (> 45 min) Laparoscopic surgery (> 45 min) Malignancy Confined to bed (> 72 hours) Immobilizing plaster cast Central venous access Age >= 75 History of VTE Family history of VTE Factor V Leiden Prothrombin [id number] Lupus anticoagulant Anticardiolipin antibodies Elevated serum homocysteine Heparin-induced thrombocytopenia Other congenital or acquired thrombophilia Stroke (< 1 month) Elective arthroplasty Hip, pelvis, or leg fracture Acute spinal cord injury (< 1 month) Prophylaxis Regimen Total Risk Factor Score Risk Level Prophylaxis Regimen 0-1 Low Early ambulation 2 Moderate Order ONE of the following: *Sequential Compression Device (SCD) *Heparin 5000 units SQ BID 3-4 Higher Order ONE of the following medications: *Heparin 5000 units SQ TID *Enoxaparin/Lovenox 40 mg SQ daily (WT < 150 kg, CrCl > 30 mL/min) *Enoxaparin/Lovenox 30 mg SQ daily (WT < 150 kg, CrCl > 10-29 mL/min) *Enoxaparin/Lovenox 30 mg SQ BID (WT < 150 kg, CrCl > 30 mL/min) AND/OR *Sequential Compression Device (SCD) 5 or more Highest Order ONE of the following medications: *Heparin 5000 units SQ TID (Preferred with Epidurals) *Enoxaparin/Lovenox 40 mg SQ daily (WT < 150 kg, CrCl > 30 mL/min) *Enoxaparin/Lovenox 30 mg SQ daily (WT < 150 kg, CrCl > 10-29 mL/min) *Enoxaparin/Lovenox 30 mg SQ BID (WT < 150 kg, CrCl > 30 mL/min) AND *Sequential Compression Device (SCD) Assessment and Plan Problem List: (1) Abdominal pain ICD Code: R10.9 - Unspecified abdominal pain Status: Acute (2) Anxiety ICD Code: F41.9 - Anxiety disorder, unspecified Assessment and Plan 81 y/o male with a history of anxiety and depression presented to the ED with complaints of abdominal pain for the last 12 days. Abdominal pain, acute, unknown etiology Abdomen CT shows tiny pericardial effusion and hepatic cysts. -Consult GI, endoscopy planned for am -NPO -Pain management with IV morphine -Resume home Carafate and Protonix Anxiety, family concerned that patient has increased anxiety and is pain seeking -Consult psych for recommendations -Resume home medications DVT prophylaxis: SCDs Discussed Condition With Patient, Dr. Jean and RN Carmen Marquez Sep 19, 2017 22:19
[2017-09-20] VITALS (9 sets, daily range): BP systolic 118–146; BP diastolic 61–73; PULSE 45–74; RESP 18–21; TEMP 97.8–98.5; O2SAT 94–98
[2017-09-20] MEDS ORDERED: LACTATED RINGER'S 1000 ML IV PRN (02:15)
[2017-09-20] MEDS ORDERED: CHLORHEXIDINE GLUCONATE 2 % 1 PACK (2 CLOTHS) TOPICAL PRN (02:15)
[2017-09-20] MEDS ORDERED: SODIUM CHLORID 0.9% 500 ML IV PRN (02:15)
[2017-09-20] MEDS ORDERED: INSULIN HUMAN REGULAR 1,000 UNITS/10 ML VIAL SQ PRN (02:15)
[2017-09-20] MEDS ORDERED: METOPROLOL TARTRATE 25 MG TAB PO PRN (02:15)
[2017-09-20] MEDS ORDERED: POVIDONE IODINE 5% (ANTISEPSIS KIT) 4 APPLICATIONS EACH NARE PRN (02:15)
[2017-09-20] MEDS: MORPHINE SULFATE 2 MG/ML INJ IV PUSH PRN (07:52)
--- NOTE | 2017-09-20 08:51 | MB ---
cc: ANTONETTE BETTENCOURT M.D., TWETHIDA MD AGNONE, LOUIS M. MD LEUTERIO, RIZALINA M.D. DATE OF CONSULTATION 09/20/[address] Thalia Jean REASON FOR CONSULTATION Epigastric pain. HISTORY This is a 81-year-old male who presented to our office yesterday and was seen by Dr. Bettencourt for a 10-day history of epigastric pain. Please refer to Dr. Bettencourt' office consult for details. The patient states he has a remote history of gastric ulcer disease. He is somewhat of a poor historian and appears to suffer with anxiety and depression. He reportedly had a negative CT scan of the abdomen and pelvis last week when he went to a local emergency room. He denies any dysphagia or weight loss. The pain has not responded to Carafate or magnesium-based antacids. He states the pain did resolve with narcotic analgesics here in the ED. Dr. Bettencourt was suspicious for possible mesenteric ischemia because the pain is aggravated by eating. The patient was sent to the emergency room yesterday and underwent CTA of the abdomen and pelvis which showed a small pericardial effusion and some tiny hepatic cysts, otherwise unremarkable. No sign of mesenteric vascular disease. His lab work is also been on revealing. He states he had a colonoscopy in [place] in late 2013 because of a polyp history. PAST MEDICAL HISTORY His medical history is remarkable for: 1. Gastric ulcer disease 2. Gastroesophageal reflux disease 3. Depression 4. Anxiety PAST SURGICAL HISTORY 1. He has had a prior cholecystectomy. 2. He has had bilateral inguinal herniorrhaphies. MEDICATIONS His medications at home include: 1. Tramadol p.r.n. 2. Carafate but he states he has not been taking it on a regular basis. 3. Pantoprazole 40 mg twice a day 4. Lorazepam 1 mg p.r.n. 5. Lexapro 10 mg daily 6. Melatonin 5 mg at bedtime 7. Fiber supplement daily ALLERGIES NO KNOWN DRUG ALLERGIES. SOCIAL HISTORY He came to the office yesterday with his [id number]. He denies tobacco or significant alcohol use. He is for 57 years. FAMILY HISTORY His family history is noncontributory. PHYSICAL EXAMINATION Physical exam reveals a well-developed male in no acute distress. When I first walked in the room, he was resting quietly and in no distress, however, throughout the exam, he seemed to get more agitated, complaining about his stomach bothering him. VITAL SIGNS: His blood pressure is 133/72, pulse 74, respirations are 18 nonlabored, temperature is 98.5 orally. HEAD, EYES, EARS, NOSE, AND THROAT: Sclerae anicteric. LUNGS: Clear to auscultation. HEART: Heart sounds are regular without murmur, gallop or rub. ABDOMEN: Flat and soft with no significant tenderness. No rebound or guarding. No palpable masses. No organomegaly. EXTREMITIES: No cyanosis, clubbing or edema. SKIN: Warm and dry. NEUROLOGIC: He was alert and oriented, but had somewhat of an anxious affect. LABORATORY DATA His lab work reveals normal electrolytes. Initial lactic acid was 2.4, but repeated at 0.8, total bilirubin 2.0, alk phos and transaminases are normal. Lipase normal at 98. White count 9.2 with an unremarkable differential. Hemoglobin 15.8, platelet count 216,000. A CTA abdomen and pelvis with IV contrast shows some simple hepatic cysts and a tiny pericardial effusion. The patient is status post cholecystectomy. No significant stenosis or aneurysm seen. The celiac and SMA arteries appear patent. I IMPRESSION A 10-12 day history of upper abdominal pain. Patient with unremarkable labs and imaging. History of gastric ulcer disease. Dr. Bettencourt suggested if CTA is negative to proceed with EGD. If EGD is negative, consider psychiatric evaluation. I reviewed EGD with the patient which he has had in the past. I reviewed the risks, benefits and alternatives and informed consent obtained. MD HAIM Ladd/RAQUEL /8:05 AM /8:24 AM
[2017-09-20] MEDS: SUCRALFATE 1 GM TAB PO SCH ×4 (09:00→22:32)
[2017-09-20] MEDS ORDERED: PANTOPRAZOLE SOD 40 MG DELAYED RELEASE TAB PO SCH (09:00)
--- NOTE | 2017-09-20 09:48 | GIPROC ---
[facility] [address] [facility]. [facility], [address] EGD PROCEDURE REPORT EXAM DATE: 09/20/2017 PATIENT NAME: Jose L Cooper MR #: [id number] BIRTHDATE: 1935 ATTENDING: Navdeep Camarena MD ORDER #: [id number] ANIMATOR: Eugenio Fuller and Jayashree Martinez STATUS: inpatient INDICATIONS: The patient is a 81 yr old male here for an EGD due to epigastric abdominal pain PROCEDURE PERFORMED: EGD w/ biopsy MEDICATIONS: None and Per Anesthesia. TOPICAL ANESTHETIC: none CONSENT: The patient understands the risks and benefits of the procedure and understands that these risks include, but are not limited to: sedation, allergic reaction, infection, perforation and/or bleeding. Alternative means of evaluation and treatment include, among others: physical exam, x-rays, and/or surgical intervention. The patient elects to proceed with this endoscopic procedure. medical equipment was checked for proper function. Hand hygiene and appropriate measures for infection prevention was taken. After the risks, benefits and alternatives of the procedure were thoroughly explained, Informed consent was verified, confirmed and timeout was successfully executed by the treatment team. The patient was anesthetized with topical anesthesia and the Pentax [id number] endoscope was introduced through the mouth and advanced to the second portion of the duodenum. Retroflexed views revealed mild gastritis The gastroscope was then slowly withdrawn and removed. ESOPHAGUS: The mucosa of the esophagus appeared normal. STOMACH: There was mild gastritis in the entire examined stomach. Multiple biopsies were performed. The stomach otherwise appeared normal. DUODENUM: The duodenal mucosa appeared normal in the bulb and second portion of the duodenum. ADVERSE EVENTS: There were no complications. IMPRESSIONS: 1. The esophagus appeared normal 2. There was mild gastritis in the entire examined stomach; multiple biopsies were performed 3. The stomach otherwise appeared normal 4. Normal duodenal mucosa in the bulb and second portion of the duodenum 5. Retroflexed views revealed mild gastritis RECOMMENDATIONS: 1. Await biopsy results. Biopsy results will not be ready for 7-10 days. If you don't hear from us in two weeks, call our office for biopsy results. 2. Continue PPI PATIENT CONDITION: stable DISPOSITION: Inpatient REPEAT EXAM: NONE Navdeep Camarena MD eSigned: Navdeep Camarena MD 09/20/2017 9:47 AM cc: Viry Tang M.D. PATIENT NAME: Jose L Cooper MR#: [id number]
[2017-09-20] MEDS ORDERED: PROPOFOL 200 MG/20 ML AMP IV ONE (12:00)
[2017-09-20] MEDS ORDERED: LIDOCAINE HCL 1% PF 5 ML SYRINGE OTHER ONE (12:00)
[2017-09-20] MEDS: SODIUM CHLORIDE 0.9% FLUSH 10 ML FLUSH IV FLUSH SCH ×2 (12:01→22:32)
[2017-09-20] MEDS: ESCITALOPRAM OXALATE 10 MG TAB PO SCH (12:01)
[2017-09-20] MEDS ORDERED: ACETAMINOPHEN/HYDROcodone 325 MG/5 MG TAB PO ONE (12:15)
[2017-09-20 13:22] LABS: ALBUMIN 4.1 GM/DL (3.4-5.0); ALT (GPT) 32 U/L (12-78); AST (GOT) 25 U/L (15-37); BICARBONATE 25.4 MEQ/L (21.0-32.0); BLOOD UREA NITROGEN 13 MG/DL (7-18); CALCIUM 8.8 MG/DL (8.5-10.1); CHLORIDE 104 MEQ/L (98-107); CREATININE 1.04 MG/DL (0.60-1.30); DIRECT BILIRUBIN ADULT 0.3 MG/DL (0.0-0.2); GLOMERULAR FILTRATION RATE 69 ML/MIN (>89); GLUCOSE,RANDOM 101 MG/DL (74-106); SODIUM (NA) 139 MEQ/L (136-145)
[2017-09-20 13:23] LABS: ALKALINE PHOSPHATASE 63 U/L (45-117); INDIRECT BILIRUBIN 1.6 MG/DL (0.0-0.8); TOTAL BILIRUBIN ADULT 1.9 MG/DL (0.2-1.0); TOTAL PROTEIN 7.1 GM/DL (6.4-8.2)
--- NOTE | 2017-09-20 13:51 | PD.PSY.CON ---
Provisional Diagnosis Admission Date Sep 19, 2017 at 20:20 [place] I. Adjustment disorder with anxiety History of Present Illness Service Psychiatry Consult Requested By ER team Reason for Consult Anxiety Primary Care Physician Viry Tang MD HPI The patient is a 81-year-old man, domiciled, with psychiatric history of anxiety and depression, is on Lexapro 10 mg, medical history of GERD, presented to the ED with complaints of abdominal pain for the last 12 days. Patient states his pain on arrival was a 10/10, intermittent, sharp all over with nausea, worse with palpation. He states now his pain has resolved, 0/10, since the pain medication and gi cocktail was given. He states he took mylanta and gas ex at home with no relief and was seen by his GI Dr. Bettencourt who sent him to the ED for a CT scan and admission. He states his last bowel movement was this morning and denies any change in consistency or color. He denies any chest pain, sob, dysuria, fever or chills. She was consulted to psychiatry due to anxiety. On psychiatric evaluation today the patient is irritable, very restless, he is states that this is not a good moment to speak about psychiatric problems. Of a lot of pain in his abdomen and he wants medication for pain. He reports acute anxiety with his pain and decompensated medical problem. He denies suicidal and homicidal ideation, he denies visual and auditory hallucinations. The patient is oriented 3. Past Family Social History Coded Allergies: No Known Allergies (Unverified , 09/19/17) Active Scripts Tramadol (Tramadol) 50 Mg Tab, 50 MG PO Q6H Y for PAIN, #20 TAB 0 Refills Prov:Roger Hannah MD 09/14/17 Sucralfate (Carafate) 1 Gram Tab, 1 GM PO QID for Ulcer Prevention, #120 TAB 0 Refills On empty stomach Prov:Roger Hannah MD 09/14/17 Pantoprazole (Pantoprazole) 40 Mg Tab, 40 MG PO BID for Reflux, #30 TAB 0 Refills Prov:Roger Hannah MD 09/14/17 Reported Medications Calcium Polycarbophil (Fiber) 625 Mg Tab, 625 MG PO Y for CONSTIPATION, TAB 0 Refills 09/14/17 Melatonin (Melatonin) 5 Mg Tab, 5 MG PO HS for Provide Good Sleep, TAB 0 Refills 09/14/17 Lorazepam (Lorazepam) 1 Mg Tab, 1 MG PO Q4H Y for for severe anxiety or dyspnea , TAB 0 Refills 09/14/17 Escitalopram (Lexapro) 10 Mg Tab, 10 MG PO DAILY, #30 TAB 0 Refills 09/14/17 Current Medications Medications (Trade) Dose Ordered Sig/Pato Route Start Time Stop Time Status Last Admin (NS Flush) 2 ml UNSCH PRN IV FLUSH 09/19/17 16:15 09/19/17 20:05 (NS Flush) 2 ml UNSCH PRN IV FLUSH 09/19/17 20:30 (NS Flush) 2 ml BID IV FLUSH 09/19/17 21:00 09/20/17 12:01 (Zofran Inj) 4 mg Q6H PRN IVP 09/19/17 20:30 (Narcan Inj) 0.4 mg UNSCH PRN IV PUSH 09/19/17 20:30 (Morphine Inj) 2 mg Q4H PRN IV PUSH 09/19/17 23:15 09/20/17 07:52 (Lexapro) 10 mg DAILY PO 09/20/17 09:00 09/20/17 12:01 (Carafate) 1 gm QID PO 09/20/17 09:00 09/20/17 12:01 Lactated Ringer's 1,000 ml @ 30 mls/hr Q24H PRN IV 09/20/17 02:15 09/23/17 02:14 09/20/17 09:03 Sodium Chloride 500 ml @ 30 mls/hr [id number] PRN IV 09/20/17 02:15 09/23/17 02:14 (Lopressor) 25 mg CREPING MACHINE OPERATOR HELPER PRN PO 09/20/17 02:15 09/23/17 02:14 (Betadine 5% Antisepsis Kit) 1 applic CREPING MACHINE OPERATOR HELPER PRN EACH NARE 09/20/17 02:15 09/23/17 02:14 (Chlorhexidine 2% Cloth) 3 pack CREPING MACHINE OPERATOR HELPER PRN TOPICAL 09/20/17 02:15 09/23/17 02:14 (NovoLIN R INJ) See Protocol Table ... CREPING MACHINE OPERATOR HELPER PRN SQ 09/20/17 02:15 09/23/17 02:14 (Protonix) 40 mg DAILY PO 09/21/17 09:00 Physical Exam Vital Signs Vital Signs Date Time Temp Pulse Resp B/P (MAP) Pulse Ox O2 Delivery O2 Flow Rate FiO2 09/20/17 09:56 98.6 54 16 114/67 (83) 96 09/19/17 20:52 Nasal Cannula 2.00 I/O 09/20/17 09/20/17 09/21/17 08:00 16:00 00:00 Intake Total 100 ml Balance 100 ml Lab Results Test 09/19/17 16:50 09/19/17 19:05 09/20/17 11:40 09/20/17 12:44 White Blood Count 9.2 TH/MM3 Red Blood Count 5.00 MIL/MM3 Hemoglobin 15.8 GM/DL Hematocrit 45.1 % Mean Corpuscular Volume 90.1 FL Mean Corpuscular Hemoglobin 31.6 PG Mean Corpuscular Hemoglobin Concent 35.1 % Red Cell Distribution Width 12.7 % Platelet Count 216 TH/MM3 Mean Platelet Volume 7.4 FL Neutrophils (%) (Auto) 70.0 % Lymphocytes (%) (Auto) 21.6 % Monocytes (%) (Auto) 7.7 % Eosinophils (%) (Auto) 0.6 % Basophils (%) (Auto) 0.1 % Neutrophils # (Auto) 6.4 TH/MM3 Lymphocytes # (Auto) 2.0 TH/MM3 Monocytes # (Auto) 0.7 TH/MM3 Eosinophils # (Auto) 0.1 TH/MM3 Basophils # (Auto) 0.0 TH/MM3 CBC Comment DIFF FINAL Differential Comment Blood Urea Nitrogen 14 MG/DL 13 MG/DL Creatinine 1.09 MG/DL 1.04 MG/DL Random Glucose 96 MG/DL 101 MG/DL Total Protein 7.4 GM/DL 7.1 GM/DL Albumin 4.3 GM/DL 4.1 GM/DL Calcium Level 9.5 MG/DL 8.8 MG/DL Alkaline Phosphatase 63 U/L 63 U/L Aspartate Amino Transf (AST/SGOT) 24 U/L 25 U/L Alanine Aminotransferase (ALT/SGPT) 28 U/L 32 U/L Total Bilirubin 2.0 MG/DL 1.9 MG/DL Sodium Level 136 MEQ/L 139 MEQ/L Potassium Level 4.0 MEQ/L 3.4 MEQ/L Chloride Level 103 MEQ/L 104 MEQ/L Carbon Dioxide Level 24.7 MEQ/L 25.4 MEQ/L Anion Gap 8 MEQ/L 10 MEQ/L Estimat Glomerular Filtration Rate 65 ML/MIN 69 ML/MIN Lactic Acid Level 2.4 mmol/L 0.8 mmol/L 1.5 mmol/L Lipase 98 U/L Direct Bilirubin 0.3 MG/DL Indirect Bilirubin 1.6 MG/DL Mental Status Examination Appearance: Appropriate Consciousness: Alert Orientation: x4 Motor Activity: Normal gait Speech: Unremarkable Language: Adequate Fund of Knowledge: Adequate Attention and Concentration: Adequate Memory: Unremarkable Mood: Irritable Affect: Irritable Thought Process & Associations: Intact Thought Content: Appropriate Hallucination Type: None Delusion Type: None Suicidal Ideation: No Suicidal Plan: No Suicidal Intention: No Homicidal Ideation: No Homicidal Plan: No Homicidal Intention: No Insight: Adequate Judgment: Adequate Assessment & Plan Problem List: (1) Adjustment disorder with anxiety ICD Codes: F43.22 - Adjustment disorder with anxiety Assessment & Plan: Patient is poorly cooperative right now with a psychiatric evaluation with reported acute pain. He denies suicidal and homicidal ideation , he denies visual and auditory hallucinations. He reports increased anxiety related with his pain. Continue Lexapro 10 mg. Prescribed clonazepam 0.5 mg 3 times a day for anxiety. I will follow-up. Assessment & Plan Estimated LOS: Ricci Machuca MD Sep 20, 2017 13:51
--- NOTE | 2017-09-20 14:12 | HHI.PR ---
Subjective Remarks pt seen this morning. Reports continued abdominal pain. Denies any chest pain or shortness of breath. Reports continued nausea. Not tolerating p.o. intake. Objective Vital Signs Date Time Temp Pulse Resp B/P (MAP) Pulse Ox O2 Delivery O2 Flow Rate FiO2 09/20/17 09:56 98.6 54 16 114/67 (83) 96 09/20/17 08:22 97.9 50 20 131/73 (92) 94 09/20/17 05:31 98.5 74 18 133/72 (92) 98 09/20/17 04:41 55 09/20/17 00:16 45 09/19/17 21:54 98.1 51 18 127/69 (88) 95 09/19/17 21:00 09/19/17 20:52 67 16 147/67 (93) 98 Nasal Cannula 2.00 09/19/17 18:37 62 18 155/72 (99) 99 Nasal Cannula 2.00 09/19/17 17:12 18 09/19/17 17:11 55 18 127/63 (84) 98 Nasal Cannula 2.00 09/19/17 17:03 97 Room Air 09/19/17 15:51 97.6 69 20 144/79 (100) 96 I/O 09/19/17 09/19/17 09/19/17 09/20/17 09/20/17 09/20/17 07:00 15:00 23:00 07:00 15:00 23:00 Intake Total 1000 ml 100 ml Balance 1000 ml 100 ml Intake IV Total 1000 ml Other 100 ml # Voids 1 # Bowel Movements 0 Result Diagram: 09/19/17 1650 09/20/17 1140 Objective Remarks GENERAL:Patient lying flat in bed. Appears uncomfortable. Appears anxious. SKIN: Warm and dry. HEAD: Normocephalic. EYES: No scleral icterus. No injection or drainage. NECK: Supple, trachea midline. No JVD or lymphadenopathy. CARDIOVASCULAR: Regular rate and rhythm without murmurs, gallops, or rubs. RESPIRATORY: Breath sounds equal bilaterally. No accessory muscle use. GASTROINTESTINAL: Abdomen soft. Tender to moderate palpation in the epigastrium. MUSCULOSKELETAL: No cyanosis, or edema. BACK: Nontender without obvious deformity. No CVA tenderness. A/P Assessment and Plan 81 y/o male with a history of anxiety and depression presented to the ED with complaints of abdominal pain for the last 12 days. Abdominal pain, acute, unknown etiology. Intractable at this point Abdomen CT shows tiny pericardial effusion and hepatic cysts. -Consult GI, endoscopy planned for am -NPO -Pain management with IV morphine -Resume home Carafate and Protonix = PPI as per GI. EGD with esophagitis and gastritis. 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 Appreciate GI assistance. psychiatry also consulted. Appreciate assistance //Anxiety, family concerned that patient has increased anxiety and is pain seeking -Consult psych for recommendations -Resume home medications //Hypokalemia. Potassium 3.4. Mild. replace DVT prophylaxis: SCDs Discharge Planning Pending improvement in nausea and abdominal pain. Hakan Christensen MD Sep 20, 2017 14:12
--- NOTE | 2017-09-20 14:50 | EKG ---
Date Performed: 09/20/2017 Time Performed: 06:13:38 PTAGE: 81 years EKG: SINUS BRADYCARDIA BORDERLINE ECG INTERPRETATION BASED ON A DEFAULT AGE OF 42 YEARS PREVIOUS TRACING : 09/14/2017 16.48 DOCTOR: Navjot Chowdary Interpretating Date/Time 09/20/2017 14:43:13
[2017-09-20] MEDS ORDERED: POTASSIUM CHLOR 10 MEQ PREMIX 100 ML IV ONE (15:00)
[2017-09-20] MEDS ORDERED: ALPRAZolam 0.5 MG TAB PO ONE (15:15)
[2017-09-20] MEDS ORDERED: ASPIRIN EC 81 MG TABEC PO ONE (15:15)
[2017-09-20] MEDS: NS + KCL 20 MEQ INJ 1,000 ML IV SCH (15:17)
[2017-09-20] MEDS: DOCUSATE SODIUM 100 MG CAP PO SCH (22:32)
[2017-09-21] VITALS (11 sets, daily range): BP systolic 118–151; BP diastolic 57–85; PULSE 51–68; RESP 16–20; TEMP 97.3–98.5; O2SAT 96–100
[2017-09-21] MEDS ORDERED: ALUMINUM/MAGNESIUM/SIMETH 30 ML CUP PO PRN (01:30)
[2017-09-21] MEDS ORDERED: IBUPROFEN 400 MG TAB PO ONE (01:30)
[2017-09-21] MEDS: MORPHINE SULFATE 2 MG/ML INJ IV PUSH PRN ×3 (03:41→17:28)
[2017-09-21] MEDS ORDERED: clonazePAM 0.5 MG TAB PO ONE (04:30)
[2017-09-21] MEDS: NS + KCL 20 MEQ INJ 1,000 ML IV SCH ×2 (04:32→14:50)
--- NOTE | 2017-09-21 11:24 | HHI.PR ---
Subjective Remarks Patient seen this morning around 9 AM. Appears comfortable, however when I walk in the room and talk about his pain, he starts crying, holding his belly. Has eaten half of his eggs,. Denies any chest pain or shortness of breath. Denies any radiation pain to the back. Objective Vital Signs Date Time Temp Pulse Resp B/P (MAP) Pulse Ox O2 Delivery O2 Flow Rate FiO2 09/21/17 11:04 98.3 61 20 129/63 (85) 100 09/21/17 07:18 97.3 68 18 151/85 (107) 97 09/21/17 04:42 51 09/21/17 03:58 98.1 57 18 133/75 (94) 99 09/21/17 00:02 51 09/20/17 23:30 98.0 63 18 146/70 (95) 97 09/20/17 20:13 63 09/20/17 19:36 97.8 66 18 118/61 (80) 95 09/20/17 17:43 97.8 61 21 130/67 (88) 96 I/O 09/20/17 09/20/17 09/20/17 09/21/17 09/21/17 09/21/17 07:00 15:00 23:00 07:00 15:00 23:00 Intake Total 100 ml Balance 100 ml Other 100 ml # Voids 1 3 # Bowel Movements 0 Result Diagram: 09/19/17 1650 09/20/17 1140 Objective Remarks GENERAL:Patient lying flat in bed. Appears comfortable, however starts crying when talking about pain. SKIN: Warm and dry. HEAD: Normocephalic. EYES: No scleral icterus. No injection or drainage. NECK: Supple, trachea midline. No JVD or lymphadenopathy. CARDIOVASCULAR: Regular rate and rhythm without murmurs, gallops, or rubs. RESPIRATORY: Breath sounds equal bilaterally. No accessory muscle use. GASTROINTESTINAL: Abdomen soft. Tender to moderate palpation in the epigastrium. MUSCULOSKELETAL: No cyanosis, or edema. BACK: Nontender without obvious deformity. No CVA tenderness. A/P Assessment and Plan 81 y/o male with a history of anxiety and depression presented to the ED with complaints of abdominal pain for the last 12 days. //Abdominal pain, acute, unknown etiology. Intractable at this point //Abdomen CT shows tiny pericardial effusion and hepatic cysts. -Consult GI, endoscopy planned for am -NPO -Pain management with IV morphine -Resume home Carafate and Protonix = PPI as per GI. EGD with esophagitis and gastritis. 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 Appreciate GI assistance. psychiatry also consulted. Appreciate assistance = Continue PPI as per GI. Discussed with GI, GI does not feel that they can do anything more for this patient. We will recheck stat labs today, if negative, discharge home with Ativan 3 times daily. Follow-up primary care //Anxiety, family concerned that patient has increased anxiety and is pain seeking -Consult psych for recommendations -Resume home medications. Patient denies any suicidal or homicidal ideation. //Hypokalemia. Potassium 3.4. Mild. replace = Recheck today. DVT prophylaxis: SCDs Discharge Planning If labs are okay today. Discharge home with prescription for benzodiazepine. Hakan Christensen MD Sep 21, 2017 11:24
[2017-09-21] MEDS ORDERED: CLON.5 PO (11:26)
[2017-09-21] MEDS: ESCITALOPRAM OXALATE 10 MG TAB PO SCH (11:39)
[2017-09-21] MEDS: DOCUSATE SODIUM 100 MG CAP PO SCH ×2 (11:39→20:51)
[2017-09-21] MEDS: PANTOPRAZOLE SOD 40 MG DELAYED RELEASE TAB PO SCH (11:39)
[2017-09-21] MEDS: ASPIRIN EC 81 MG TABEC PO SCH (11:39)
[2017-09-21] MEDS: SUCRALFATE 1 GM TAB PO SCH ×4 (11:40→20:51)
[2017-09-21] MEDS: SODIUM CHLORIDE 0.9% FLUSH 10 ML FLUSH IV FLUSH SCH ×2 (11:40→20:51)
[2017-09-21 13:22] LABS: ALBUMIN 3.9 GM/DL (3.4-5.0); ALT (GPT) 27 U/L (12-78); AST (GOT) 24 U/L (15-37); BICARBONATE 23.5 MEQ/L (21.0-32.0); BLOOD UREA NITROGEN 13 MG/DL (7-18); CALCIUM 8.5 MG/DL (8.5-10.1); CHLORIDE 108 MEQ/L (98-107); CREATININE 0.87 MG/DL (0.60-1.30); GLOMERULAR FILTRATION RATE 85 ML/MIN (>89); GLUCOSE,RANDOM 103 MG/DL (74-106); SODIUM (NA) 140 MEQ/L (136-145)
[2017-09-21 13:25] LABS: ALKALINE PHOSPHATASE 60 U/L (45-117); TOTAL BILIRUBIN ADULT 1.5 MG/DL (0.2-1.0); TOTAL PROTEIN 6.7 GM/DL (6.4-8.2)
[2017-09-21] MEDS: clonazePAM 0.5 MG TAB PO SCH ×2 (14:51→20:51)
[2017-09-21] MEDS ORDERED: POTASSIUM CHLORIDE 20 MEQ CONTROLLED RELEASE TAB PO ONE (15:00)
[2017-09-21] MEDS ORDERED: OLANZapine ODT 5 MG TAB PO ONE (17:00)
--- NOTE | 2017-09-21 17:28 | HHI.GIFU ---
GI Follow-up Note Consult Follow-up Subjective: Patient laying in bed comfortably, when I went in to room he was watching TV and appeared to be relaxed and in no distress. He reports his abd has been painful all day and the pain is more diffuse. I reviewed EGD results. Minimal erythema duodenal bulb otherwise negative and no good explanation for his abd pain. Objective: PHYSICAL EXAMINATION: Vitals signs stable No fever ABDOMEN: Soft, nondistended, nontender; I could palpate with some force and abdomen was very benign. Available Data (labs, X- Rays, Procedues) : Vital Signs Date Time Temp Pulse Resp B/P (MAP) Pulse Ox O2 Delivery O2 Flow Rate FiO2 09/21/17 15:24 98.5 68 18 151/70 (97) 97 09/21/17 11:04 98.3 61 20 129/63 (85) 100 09/21/17 07:18 97.3 68 18 151/85 (107) 97 09/21/17 04:42 51 09/21/17 03:58 98.1 57 18 133/75 (94) 99 09/21/17 00:02 51 09/20/17 23:30 98.0 63 18 146/70 (95) 97 09/20/17 20:13 63 09/20/17 19:36 97.8 66 18 118/61 (80) 95 09/20/17 17:43 97.8 61 21 130/67 (88) 96 Laboratory Tests Test 09/19/17 16:50 09/19/17 19:05 09/20/17 11:40 09/20/17 12:44 Total Bilirubin 2.0 MG/DL (0.2-1.0) 1.9 MG/DL (0.2-1.0) Estimat Glomerular Filtration Rate 65 ML/MIN (>89) 69 ML/MIN (>89) Lactic Acid Level 2.4 mmol/L (0.4-2.0) Direct Bilirubin 0.3 MG/DL (0.0-0.2) Potassium Level 3.4 MEQ/L (3.5-5.1) Indirect Bilirubin 1.6 MG/DL (0.0-0.8) Test 09/21/17 12:06 Total Bilirubin 1.5 MG/DL (0.2-1.0) Chloride Level 108 MEQ/L (98-107) Estimat Glomerular Filtration Rate 85 ML/MIN (>89) ASSESSMENT/PLAN: 1. Diffuse abdominal pain of unknown etiology. Urine porphobilinogen screen pending. Will try an antispasmodic like Bentyl. No BM for 3 days per pt. Will try a laxative. Mild elevation bilirubin c/w Gilbert's. It was a pleasure seeing Jose L Cooper. Thank you for this consult. Entered by: Navdeep Latif MD Sep 21, 2017 17:28
[2017-09-21] MEDS ORDERED: POLYETHYLENE GLYCOL 17 GM PKG PO ONE (17:30)
[2017-09-21] MEDS: SODIUM CHLORIDE 23.4% INJ 77 MEQ in DEXTROSE 10% INJ 1,000 ML IV SCH (18:08)
[2017-09-22] VITALS (9 sets, daily range): BP systolic 118–148; BP diastolic 60–76; PULSE 41–69; RESP 16–20; TEMP 97.4–98.2; O2SAT 96–98
[2017-09-22] MEDS: clonazePAM 0.5 MG TAB PO SCH ×3 (07:32→22:19)
--- NOTE | 2017-09-22 08:04 | HHI.PR ---
Subjective Remarks Patient sleeping, wakes of her exam. After waking up reports abdominal pain. Goes back to sleep Objective Vital Signs Date Time Temp Pulse Resp B/P (MAP) Pulse Ox O2 Delivery O2 Flow Rate FiO2 09/22/17 04:04 69 09/22/17 03:45 97.4 63 16 148/76 (100) 97 09/22/17 00:08 50 09/21/17 23:40 97.8 51 16 118/57 (77) 96 09/21/17 21:19 97.4 57 20 118/62 (80) 98 09/21/17 20:05 55 09/21/17 15:24 98.5 68 18 151/70 (97) 97 09/21/17 12:06 68 09/21/17 11:04 98.3 61 20 129/63 (85) 100 09/21/17 08:37 56 I/O 09/21/17 09/21/17 09/21/17 09/22/17 09/22/17 09/22/17 07:00 15:00 23:00 07:00 15:00 23:00 Output Total 250 ml Balance -250 ml Output Urine Total 250 ml Result Diagram: 09/19/17 1650 09/21/17 1206 Objective Remarks GENERAL:Patient lying flat in bed. Sleeping, wakes up for exam. Is not crying this morning. SKIN: Warm and dry. HEAD: Normocephalic. EYES: No scleral icterus. No injection or drainage. NECK: Supple, trachea midline. No JVD. CARDIOVASCULAR: Regular rate and rhythm without murmurs, gallops, or rubs. RESPIRATORY: Breath sounds equal bilaterally. No accessory muscle use. GASTROINTESTINAL: Abdomen soft. Tender to moderate palpation in the epigastrium. MUSCULOSKELETAL: No cyanosis, or edema. BACK: Nontender without obvious deformity. No CVA tenderness. A/P Assessment and Plan 81 y/o male with a history of anxiety and depression presented to the ED with complaints of abdominal pain for the last 12 days. //Abdominal pain, acute, unknown etiology. Intractable at this point //Abdomen CT shows tiny pericardial effusion and hepatic cysts. -Consult GI, endoscopy planned for am -NPO -Pain management with IV morphine -Resume home Carafate and Protonix = PPI as per GI. EGD with esophagitis and gastritis. 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 Appreciate GI assistance. psychiatry also consulted. Appreciate assistance = Continue PPI as per GI. Discussed with GI, GI does not feel that they can do anything more for this patient. We will recheck stat labs today, if negative, discharge home with Ativan 3 times daily. Follow-up primary care =09/21 Discussed with daughter at bedside. She reports similar issues in the past. She reports a previous episode of abdominal pain when he stopped his Zyprexa. She reports recently having Zyprexa discontinued by psychiatrist on , with abdominal pain starting on 09/08. 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 We will stop patient's Lexapro, which was recently started on 09/05. We will start patient back on olanzapine at previous home dose of 5 mg at bedtime. Daughter states that patient is unable to go home at this time, as he appears to be having a mental breakdown, is not eating, has lost 5 pounds in the past week. = 09/22. Patient sleeping, appears to be comfortable will continue to monitor. Continue on IV D10 normal saline. Await psych reevaluation //Anxiety, family concerned that patient has increased anxiety and is pain seeking -Consult psych for recommendations -Resume home medications. Patient denies any suicidal or homicidal ideation. //Hypokalemia. Potassium 3.4. Mild. replace = Resolved after replacement. DVT prophylaxis: SCDs Discharge Planning If labs are okay today. Discharge home with prescription for benzodiazepine. Discharge Planning awaiting psychiatry reevaluation. If pain is improved today, patient tolerating p.o. intake, can be discharged home. Hakan Christensen MD Sep 22, 2017 08:04
[2017-09-22] MEDS: SODIUM CHLORIDE 0.9% FLUSH 10 ML FLUSH IV FLUSH SCH ×2 (09:00→20:45)
[2017-09-22] MEDS: ASPIRIN EC 81 MG TABEC PO SCH (09:57)
[2017-09-22] MEDS: SUCRALFATE 1 GM TAB PO SCH ×4 (09:57→20:45)
[2017-09-22] MEDS: PANTOPRAZOLE SOD 40 MG DELAYED RELEASE TAB PO SCH (09:57)
[2017-09-22] MEDS: DOCUSATE SODIUM 100 MG CAP PO SCH ×2 (09:57→20:45)
[2017-09-22] MEDS: SODIUM CHLORIDE 23.4% INJ 77 MEQ in DEXTROSE 10% INJ 1,000 ML IV SCH ×2 (09:58→20:47)
--- NOTE | 2017-09-22 11:35 | HHI.GIFU ---
GI Follow-up Note Consult Follow-up Subjective: Patient laying in bed comfortably, no new complaints except for the same abdominal pain. Attendings progress note for today seen. Objective: PHYSICAL EXAMINATION: Vitals signs stable No fever ABDOMEN: Soft, nondistended, nontender; still very benign on exam. WRIST LINER: depressed affect Available Data (labs, X- Rays, Procedues) : ASSESSMENT/PLAN: 1. Diffuse abdominal pain-does not look like he received any of the dicyclomine. Will ask nursing to try it for the abd pain. Urine porphyrin screen pending. Pt can f/u with Dr Bettencourt as outpt if needed. It was a pleasure seeing Jose L Cooper. Thank you for this consult. Entered by: Navdeep Latif MD Sep 22, 2017 11:35
[2017-09-22] MEDS: DICYCLOMINE HCL 10 MG CAP PO PRN ×2 (11:45→17:39)
[2017-09-22 12:37] LABS: ALBUMIN 3.4 GM/DL (3.4-5.0); ALT (GPT) 25 U/L (12-78); AST (GOT) 19 U/L (15-37); BICARBONATE 27.6 MEQ/L (21.0-32.0); BLOOD UREA NITROGEN 11 MG/DL (7-18); CALCIUM 8.5 MG/DL (8.5-10.1); CHLORIDE 111 MEQ/L (98-107); CREATININE 0.88 MG/DL (0.60-1.30); GLOMERULAR FILTRATION RATE 84 ML/MIN (>89); GLUCOSE,RANDOM 91 MG/DL (74-106); SODIUM (NA) 143 MEQ/L (136-145)
[2017-09-22 12:39] LABS: ALKALINE PHOSPHATASE 53 U/L (45-117); TOTAL BILIRUBIN ADULT 1.1 MG/DL (0.2-1.0); TOTAL PROTEIN 6.2 GM/DL (6.4-8.2)
--- NOTE | 2017-09-22 15:20 | HHI.PYPN ---
Subjective Remarks Patient seen in his room on F pod. Patient's son present throughout session. Patient is calm cooperative me some focus on his abdominal pain and physical issues. He states he has seen a psychiatrist in the past she has difficulty with the medications. He denies suicidality homicidality voices or visions. Denies ever prior inpatient psychiatric stays. There are stressors in his life , is verified by her son, with his of 57 years having dementia. In the stressors with relationship with his daughter who lives in [place] along with her children. After speaking with patient I talked with patient's son and Dr. Christensen. Dr. Christensen had offered patient 5 mg of Zyprexa at bedtime last night it seemed to have helped him focus calm down and be less somatic. Per the son patient is been on this medication the past with fairly good results. Son is aware of the stressors is that is undergoing and how it is influencing him. At this time I feel patient does not meet criteria for acute inpatient psychiatric hospitalization. There surely would benefit from further psychiatric care and counseling. I did encourage the center continue his support and perhaps be somewhat buffer with other structures in the family. I do agree with Dr. Christensen small dose of Zyprexa at bedtime would be appropriate. Patient to be clinician overnight. Pro-discharge tomorrow to family with follow-up with her private psychiatrist also recommendations for family counseling. Review of Systems Except as stated in HPI: all other systems reviewed are Neg Mental Status Examination Appearance: Appropriate Consciousness: Alert Orientation: x4 Motor Activity: Normal gait Speech: Unremarkable Language: Adequate Fund of Knowledge: Adequate Attention and Concentration: Adequate Memory: Unremarkable Mood: Irritable Affect: Irritable Thought Process & Associations: Intact Thought Content: Appropriate Hallucination Type: None Delusion Type: None Suicidal Ideation: No Suicidal Plan: No Suicidal Intention: No Homicidal Ideation: No Homicidal Plan: No Homicidal Intention: No Insight: Adequate Judgment: Adequate Results Labs Test 09/22/17 11:30 Blood Urea Nitrogen 11 MG/DL Creatinine 0.88 MG/DL Random Glucose 91 MG/DL Total Protein 6.2 GM/DL Albumin 3.4 GM/DL Calcium Level 8.5 MG/DL Alkaline Phosphatase 53 U/L Aspartate Amino Transf (AST/SGOT) 19 U/L Alanine Aminotransferase (ALT/SGPT) 25 U/L Total Bilirubin 1.1 MG/DL Sodium Level 143 MEQ/L Potassium Level 3.8 MEQ/L Chloride Level 111 MEQ/L Carbon Dioxide Level 27.6 MEQ/L Anion Gap 4 MEQ/L Estimat Glomerular Filtration Rate 84 ML/MIN Vitals/IOs Vital Signs Date Time Temp Pulse Resp B/P (MAP) Pulse Ox O2 Delivery O2 Flow Rate FiO2 09/22/17 12:20 98.2 60 20 120/65 (83) 96 09/19/17 20:52 Nasal Cannula 2.00 Assessment & Plan Problem List: (1) Adjustment disorder with anxiety ICD Codes: F43.22 - Adjustment disorder with anxiety Assessment & Plan Estimated LOS: days if this time patient does not meet criteria for inpatient psychiatric stay. Agree with medication adjustment by medicine service, and agreed with further observation. With discharge home follow-up outpatient psychiatric services Justification for Cont. Inpt. Per medicine service continue observation 24 hours Discharge Planning See above Request HC Surrog/Guard Advoc?: No Teddy Morgan MD Sep 22, 2017 15:20
[2017-09-22] MEDS ORDERED: OLANZapine ODT 5 MG TAB PO SCH (21:00)
[2017-09-23 03:55] VITALS: PULSE 49
[2017-09-23 04:40] VITALS: BP 118/60; PULSE 51; RESP 17; TEMP 97.9; O2SAT 96
[2017-09-23] MEDS: clonazePAM 0.5 MG TAB PO SCH (06:32)
[2017-09-23] MEDS: SODIUM CHLORIDE 0.9% FLUSH 10 ML FLUSH IV FLUSH SCH (09:00)
[2017-09-23 10:15] VITALS: PULSE 46
[2017-09-23] MEDS ORDERED: OLANZ5 PO (10:18)
[2017-09-23] MEDS ORDERED: FLUO10TA PO (10:18)
[2017-09-23] MEDS ORDERED: DICY10 PO (10:18)
[2017-09-23] MEDS ORDERED: ECASA81 PO (10:18)
[2017-09-23] MEDS: ASPIRIN EC 81 MG TABEC PO SCH (10:23)
[2017-09-23] MEDS: PANTOPRAZOLE SOD 40 MG DELAYED RELEASE TAB PO SCH (10:23)
[2017-09-23] MEDS: DICYCLOMINE HCL 10 MG CAP PO PRN (10:23)
[2017-09-23] MEDS: DOCUSATE SODIUM 100 MG CAP PO SCH (10:23)
[2017-09-23] MEDS: SUCRALFATE 1 GM TAB PO SCH (10:23)
--- NOTE | 2017-09-23 10:24 | HHI.PR ---
Subjective Remarks Patient sleeping, wakes of her exam. After waking up reports abdominal pain. Goes back to sleep Objective Vital Signs Date Time Temp Pulse Resp B/P (MAP) Pulse Ox O2 Delivery O2 Flow Rate FiO2 09/23/17 04:40 97.9 51 17 118/60 (79) 96 09/23/17 03:55 49 09/22/17 23:14 51 09/22/17 19:16 47 09/22/17 19:14 98.0 46 17 118/62 (80) 98 09/22/17 12:20 98.2 60 20 120/65 (83) 96 09/22/17 12:11 41 I/O 09/22/17 09/22/17 09/22/17 09/23/17 09/23/17 09/23/17 07:00 15:00 23:00 07:00 15:00 23:00 Output Total 1 ml Balance -1 ml Stool Total 1 ml # Voids 4 Result Diagram: 09/19/17 1650 09/22/17 1130 Objective Remarks GENERAL:Patient lying flat in bed. Sleeping, wakes up for exam. There is comfortable. SKIN: Warm and dry. HEAD: Normocephalic. EYES: No scleral icterus. No injection or drainage. NECK: Supple, trachea midline. No JVD. CARDIOVASCULAR: Regular rate and rhythm without murmurs, gallops, or rubs. RESPIRATORY: Breath sounds equal bilaterally. No accessory muscle use. GASTROINTESTINAL: Abdomen soft. No tenderness. MUSCULOSKELETAL: No cyanosis, or edema. BACK: Nontender without obvious deformity. No CVA tenderness. A/P Assessment and Plan 81 y/o male with a history of anxiety and depression presented to the ED with complaints of abdominal pain for the last 12 days. //Abdominal pain, acute, unknown etiology. Intractable at this point //Abdomen CT shows tiny pericardial effusion and hepatic cysts. -Consult GI, endoscopy planned for am -NPO -Pain management with IV morphine -Resume home Carafate and Protonix = PPI as per GI. EGD with esophagitis and gastritis. 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 Appreciate GI assistance. psychiatry also consulted. Appreciate assistance = Continue PPI as per GI. Discussed with GI, GI does not feel that they can do anything more for this patient. We will recheck stat labs today, if negative, discharge home with Ativan 3 times daily. Follow-up primary care =09/21 Discussed with daughter at bedside. She reports similar issues in the past. She reports a previous episode of abdominal pain when he stopped his Zyprexa. She reports recently having Zyprexa discontinued by psychiatrist on , with abdominal pain starting on 09/08. 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 We will stop patient's Lexapro, which was recently started on 09/05. We will start patient back on olanzapine at previous home dose of 5 mg at bedtime. Daughter states that patient is unable to go home at this time, as he appears to be having a mental breakdown, is not eating, has lost 5 pounds in the past week. = 09/22. Patient sleeping, appears to be comfortable will continue to monitor. Continue on IV D10 normal saline. Await psych reevaluation = 09/23. Patient denies abdominal pain. Plan for discharge home when cleared by son. Discharged with Zyprexa, low-dose fluoxetine as patient had been on prior to this episode. //Anxiety, family concerned that patient has increased anxiety and is pain seeking -Consult psych for recommendations - Patient denies any suicidal or homicidal ideation. = Patient placed back on Zyprexa, fluoxetine were discontinued on September 05. //Hypokalemia. Potassium 3.4. Mild. replace = Resolved after replacement. DVT prophylaxis: SCDs Discharge Planning Pain improved today. If tolerates breakfast. Discharge home on adjusted medications. Hakan Christensen MD Sep 23, 2017 10:24
[2017-09-23] MEDS ORDERED: FLUoxetine HCL 10 MG CAP PO ONE (10:30)
[2017-09-23 10:49] VITALS: BP 120/62; PULSE 70; RESP 20; TEMP 97.8; O2SAT 98
--- NOTE | 2017-09-23 14:28 | HHI.FF ---
Face to Face Verification Diagnosis: (1) Adjustment disorder with anxiety Home Health Nursing Instructions: Eval and treat. [employer] Order: To Evaluate: Support services Order: To Provide: Long range planning, Community services I have seen patient Jose L Cooper on 09/23/17. My clinical findings support the need for the requested home health care services because: Need for psychosocial assistance I certify that my clinical findings support that this patient is homebound because: Unsafe to leave home unassisted [facility] Hakan Christensen MD Sep 23, 2017 14:28
--- NOTE | 2017-09-23 14:31 | HHI.DS ---
Discharge Summary Admission Date Sep 19, 2017 at 20:20 Discharge Date: Sep 23, 2017 Admitting Diagnosis abdominal pain, anxiety (1) Abdominal pain ICD Code: R10.9 - Unspecified abdominal pain Status: Acute (2) Anxiety ICD Code: F41.9 - Anxiety disorder, unspecified Procedures EGD. Please see report Brief History - From Admission 81 y/o male with a history of gerd, anxiety and depression presented to the ED with complaints of abdominal pain for the last 12 days. Patient states his pain on arrival was a 10/10, intermittent, sharp all over with nausea, worse with palpation. He states now his pain has resolved, 0/10, since the pain medication and gi cocktail was given. He states he took mylanta and gas ex at home with no relief and was seen by his GI Dr. Bettencourt who sent him to the ED for a CT scan and admission. He states his last bowel movement was this morning and denies any change in consistency or color. He denies any chest pain, sob, dysuria, fever or chills. Per ER physician family and GI physician thinks this may be physiatric in nature. Per family patient use to abuse pain medication and they think this may be a cause for concern. CBC/BMP: 09/19/17 1650 09/22/17 1130 Significant Findings Laboratory Tests Test 09/21/17 12:06 09/22/17 11:30 Total Bilirubin 1.5 MG/DL (0.2-1.0) 1.1 MG/DL (0.2-1.0) Chloride Level 108 MEQ/L (98-107) 111 MEQ/L (98-107) Estimat Glomerular Filtration Rate 85 ML/MIN (>89) 84 ML/MIN (>89) Total Protein 6.2 GM/DL (6.4-8.2) Anion Gap 4 MEQ/L (5-15) Imaging Last Impressions Abdomen/Pelvis CT 09/19/17 0000 Signed Impressions: Service Date/Time: Tuesday, September 19, 2017 17:57 - CONCLUSION: Tiny pericardial effusion and hepatic cysts, otherwise unremarkable. Leda Monroy MD Hospital Course GI was consulted, patient underwent EGD with esophagitis and gastritis. He was continued on PPI. Abdominal discomfort continued. Patient reported to have stopped olanzapine, as well as fluoxetine on 09/05, with abdominal pain beginning several days after. Psychiatry was consulted. Patient was started back on olanzapine with improvement in sleep, as well as abdominal pain. Patient was also started on Bentyl with improvement in abdominal cramping. Patient was feeling much better, was discharged home. Follow with GI as outpatient. For problem based summary from most recent progress note, please see below 81 y/o male with a history of anxiety and depression presented to the ED with complaints of abdominal pain for the last 12 days. //Abdominal pain, acute, unknown etiology. Intractable at this point //Abdomen CT shows tiny pericardial effusion and hepatic cysts. -Consult GI, endoscopy planned for am -NPO -Pain management with IV morphine -Resume home Carafate and Protonix = PPI as per GI. EGD with esophagitis and gastritis. 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 Appreciate GI assistance. psychiatry also consulted. Appreciate assistance = Continue PPI as per GI. Discussed with GI, GI does not feel that they can do anything more for this patient. We will recheck stat labs today, if negative, discharge home with Ativan 3 times daily. Follow-up primary care =09/21 Discussed with daughter at bedside. She reports similar issues in the past. She reports a previous episode of abdominal pain when he stopped his Zyprexa. She reports recently having Zyprexa discontinued by psychiatrist on , with abdominal pain starting on 09/08. 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 We will stop patient's Lexapro, which was recently started on 09/05. We will start patient back on olanzapine at previous home dose of 5 mg at bedtime. Daughter states that patient is unable to go home at this time, as he appears to be having a mental breakdown, is not eating, has lost 5 pounds in the past week. = 09/22. Patient sleeping, appears to be comfortable will continue to monitor. Continue on IV D10 normal saline. Await psych reevaluation = 09/23. Patient denies abdominal pain. Plan for discharge home when cleared by son. Discharged with Zyprexa, low-dose fluoxetine as patient had been on prior to this episode. //Anxiety, family concerned that patient has increased anxiety and is pain seeking -Consult psych for recommendations - Patient denies any suicidal or homicidal ideation. = Patient placed back on Zyprexa, fluoxetine were discontinued on September 05. //Hypokalemia. Potassium 3.4. Mild. replace = Resolved after replacement. DVT prophylaxis: SCDs Discharge Planning Pain improved today. If tolerates breakfast. Discharge home on adjusted medications. Pt Condition on Discharge: Good Discharge Disposition: Discharge Home Discharge Time: > 30 minutes Discharge Instructions DIET: Follow Instructions for: As Tolerated, No Restrictions Activities you can perform: Regular-No Restrictions Follow up Referrals: Gastroenterology - 1 Week with Navdeep Camarena MD PCP Follow-up - 1 Week with Viry Tang MD Psychiatry Adult - 1 Week New Medications: Fluoxetine (Fluoxetine) 10 Mg Tab 10 MG PO DAILY for depression for 30 Days, #30 TAB [address] (Aspirin DR) 81 Mg Tabdr 81 MG PO DAILY for prevent heart attack, stroke., #30 TAB Clonazepam (Klonopin) 0.5 Mg Tab 0.5 MG PO Q8HR for Anxiety for 30 Days, TAB Dicyclomine (Bentyl) 10 Mg Cap 20 MG PO QID PRN for ABDOMINAL CRAMPING for 30 Days, CAP Olanzapine Odt (Zyprexa Zydis) 5 Mg Tab 5 MG PO HS for Anxiety and/or Insomnia, #30 TAB Continued Medications: Calcium Polycarbophil (Fiber) 625 Mg Tab 625 MG PO PRN for CONSTIPATION, TAB 0 Refills Lorazepam (Lorazepam) 1 Mg Tab 1 MG PO Q4H PRN for for severe anxiety or dyspnea, TAB 0 Refills Melatonin (Melatonin) 5 Mg Tab 5 MG PO HS for Provide Good Sleep, TAB 0 Refills Pantoprazole (Pantoprazole) 40 Mg Tab 40 MG PO BID for Reflux, #30 TAB 0 Refills Sucralfate (Carafate) 1 Gram Tab 1 GM PO QID for Ulcer Prevention, #120 TAB 0 Refills On empty stomach Tramadol (Tramadol) 50 Mg Tab 50 MG PO Q6H PRN for PAIN, #20 TAB 0 Refills Discontinued Medications: Escitalopram (Lexapro) 10 Mg Tab 10 MG PO DAILY, #30 TAB 0 Refills Hakan Christensen MD Sep 23, 2017 14:31
[2017-09-24] MEDS ORDERED: FLUoxetine HCL 10 MG CAP PO SCH (09:00)
== END 2017-09-23 13:57 | disposition home or self-care (01) ==
LOC: NEPC 15:49 → NEDA 20:20 → NEPFCDU 21:14
PROVIDERS: ADMIT Internal Medicine; ATTEND Internal Medicine
DX: R10.11 Right upper quadrant pain (principal); I31.3 Pericardial effusion (noninflammatory); F43.22 Adjustment disorder with anxiety; K76.89 Other specified diseases of liver; K31.9 Disease of stomach and duodenum, unspecified; K21.0 Gastro-esophageal reflux disease with esophagitis; K29.70 Gastritis, unspecified, without bleeding; R17 Unspecified jaundice; E87.6 Hypokalemia; R00.1 Bradycardia, unspecified; Z87.11 Personal history of peptic ulcer disease; Z79.899 Other long term (current) drug therapy
CPT/HCPCS: 00731; 43239; 74174; 80053; 82248; 83605; 83690; 85025; 88305; 88312; 93005; 96361; 96365; 96375; 96376; 97162; 99285; G0378; G8987; G8988; J2060; J2270; J2405; J3480; J7030; J7120; Q9967